=== PATIENT | male | born 1940 | race Caucasian/White ===

== ENCOUNTER → 2022-04-01 08:10 | Outpatient (BNVA) | payer MEDICARE, SELFPAY | PROVIDERS: PCP Internal Medicine; Visit Provider Nurse Practitioner Family | DX: F03.918 Unspecified dementia, unspecified severity, with other behavioral disturbance (principal); Z86.79 Personal history of other diseases of the circulatory system; Z87.898 Personal history of other specified conditions | CPT/HCPCS: 99212 ==

== ENCOUNTER → 2022-07-06 11:37 | Outpatient (BNVA) | payer MEDICARE, SELFPAY | PROVIDERS: PCP Internal Medicine; Visit Provider Nurse Practitioner Family | DX: F03.918 Unspecified dementia, unspecified severity, with other behavioral disturbance (principal); R26.9 Unspecified abnormalities of gait and mobility; Z86.79 Personal history of other diseases of the circulatory system; Z87.898 Personal history of other specified conditions | CPT/HCPCS: 99212 ==

== ENCOUNTER 2022-12-29 11:14 | Outpatient (AMB) | payer MEDICARE, SELFPAY ==
--- NOTE | 2022-12-29 11:16 | A.OFFVIS_ITS ---
Intake Intake Visit Reasons: 6m Follow up - daughter iphone [phone] Intake Note: Pt presents with his daughter as a telehealth. My father is spiraling downhill, alot has happened since July. Slots Manager Required: No Allergies No Known Allergies [No Known Allergies*] Allergy (Unverified 12/29/22 11:17) HPI HPI Comments History of Present Illness Details 82-yr-old male presents for f/u televideo visit. Pt is accompanied by his dtr and son. Dtr provides most of hx. Pt endorses the following interval medical history changes: Pt's dtr reports that pt had a [facility] admission in July d/t ? constipation. Pt had a significant decline- became overall more weak- requiring soft diet, max assist, and a w/c for all mobility. Pt has had additional [facility] admits since. He is currently in rehab at [facility] memory support unit. Dtr states pt seems more spacey. he is not initiating conversation as much and his speech is much less understandable. He is still confined to a w/c. He is not trying to walk or get up on his own. He is working w/ PT, OT, and DIRECTOR OF COLLECTIONS. Dtr is uncertain what pt is taking for medications. She is wondering if pt can be weaned off of namenda- as does not feel this is helping any longer. [facility] Family History (Updated 07/06/22 @ 11:51 by Yajaira Wright [employer] SALES [employer]OCIATE) Sister Parkinsons disease Social History (Updated 07/06/22 @ 11:52 by Yajaira Wright [facility]) Alcohol intake: current Alcohol intake frequency: holidays/special occasions only Patient Tobacco Use Status: Former Tobacco user Review of Systems Const All systems reviewed & are unremarkable except as noted in HPI and below Physical Exam Const General: cooperative and no acute distress HEENT Head: Yes normocephalic Resp Effort & Inspection: normal respiratory effort and able to speak in complete sentences Neuro Other: Pt is alert, in NAD, sitting upright in his w/c. Pt tending to stare off, but his attention can be easily gained. Pt able to speak some simple sentences, otherwise aphasic. Assessment & Plan Assessment & Plan (1) Dementia with behavioral disturbance: Comment: Cognitive difficulties have progressed since initial SAH in 2018. Code(s): F03.918 - Unspecified dementia, unspecified severity, with other behavioral disturbance (2) History of subarachnoid hemorrhage: Comment: s/p fall 09/08, w/ residual language deficits Code(s): Z86.79 - Personal history of other diseases of the circulatory system (3) History of seizure: Code(s): Z87.898 - Personal history of other specified conditions Plan Will request records from [facility], [facility], [facility] unit. Upon review, will consider weaning pt off of Namenda. Continue PT, OT, DIRECTOR OF COLLECTIONS, supportive care. f/u in 3 months or sooner prn. Telehealth Telehealth Location of provider rendering services: practice address Location of patient: other ([facility] ) Patient Identification confirmed using: Name, : Yes Telehealth method: video Patient verbally consented to treatment: Yes Patient verbally consented to billing insurance company: Yes Patient informed of any privacy concerns related to visit: Yes Minutes spent on Phone/Video with Pt.: 22 Coding Level of Care Code Tele Est Pt Level 4 (22868) Diagnoses Dementia with behavioral disturbance F03.918 History of subarachnoid hemorrhage Z86.79 History of seizure Z87.898
--- OUTSIDE RECORDS SUMMARY | 2022-12-29 11:16 | XMS_ITS | Continuity of Care Document ---
Author Name Unknown Organization [facility] ter Address [address] [place] [id number]- Care Team Providers Care Interventional Radiologist Name Role Phone Laurence Luis MD Primary Care Physician Encounter [facility] ACCT R [id number] Date(s): 07/24/22 - 07/24/[address] [address]- Encounter Diagnosis Superficial vein thrombosis(Final) - 07/24/22 Superficial vein thrombosis(Final) - 07/24/22 Discharge Disposition: A-D/C Home Attending Physician: Alcira Lagos DO Admitting Physician: Alcira Lagos DO Referring Physician: Not on Staff, Referring MD Allergies, Adverse Reactions, Alerts No Known Medication Allergies Medications atorvastatin 40 mg oral tablet 1 tablet = 40 mg, By Mouth, Daily, 0 Refills, Maintenance, 02/28/21 21:41:00 EDT, Tablet Start Date: 02/28/21 Status: Ordered levothyroxine 125 mcg (0.125 mg) oral tablet 1 tablet = 125 mcg, By Mouth, Daily, 6 days a week., 0 Refills, Maintenance, 02/28/21 21:41:00 EDT,Tablet Start Date: 02/28/21 Status: Ordered Lexapro 5 mg oral tablet 2 tablet = 10 mg, By Mouth, Daily, 0 Refills, Maintenance, 07/24/22 11:12:00 EST, Partial fill uponpatient request if the prescription is for a schedule II opioid drug. Start Date: 07/24/22 Status: Ordered memantine 28 mg oral capsule, extended release 1 capsule = 28 mg, By Mouth, Daily, 0 Refills, Maintenance, 02/28/21 21:41:00 EDT, ER Capsule Start Date: 02/28/21 Status: Ordered Tylenol 8 HR Arthritis Pain 650 mg oral tablet, extended release 2 tablet = 1,300 mg, By Mouth, Every 8 hours, PRN Pain , Mild, 0 Refills, Maintenance, 07/24/22 11:12:00 EST, Partial fill upon patient request if the prescription is for a schedule II opioid drug. Start Date: 07/24/22 Status: Ordered Results Radiology Reports * Exam Date Time Procedure Performing Provider Status 07/24/22 12:00 PM US Doppler Ext Lower Venous Right Sascha Bonilla; Auth (Verified) Notes: (US Doppler Ext Lower Venous Right) Reason For Exam: Pain in limb;Other: RESULT: US Doppler Ext Lower Venous Right US Doppler Ext Lower Venous Right Hx of Present Illness: From [facility] patient has no complaints of cp, general pain or SOB at this time. Patient unable to recall any symptoms in last week. Unclear why facility requested US of RLE. Results positive for RLE DVT.; Reason: Other:; Pain in limb; Clinical Question(s): Thrombus COMPARISON: None IMAGING TECHNIQUE: Ultrasound of the veins from the groin through the calf was performed using grayscale, color, and spectral Doppler ultrasound assessing for complete compressibility and normal flowcharacteristics. FINDINGS: Limited examination. Common femoral vein: Patent. No thrombosis. Femoral vein: Patent. No thrombosis. Popliteal vein: Patent. No thrombosis. Gastrocnemius veins: The visualized portions are patent without evidence of thrombosis. Peroneal veins: The visualized portions are patent without evidence of thrombosis. The distal segment of the right peroneal vein is not visualized. Posterior tibial veins: The visualized portions are patent without evidence of thrombosis. Contralateral common femoral vein: Patent. No thrombosis. OTHER FINDINGS: There is occlusive thrombus of the visualized smaller saphenous vein. There is diffuse associated soft tissue swelling. IMPRESSION: 1. Occlusive thrombus of the visualized right smaller saphenous vein. Findings were cortexted to Dr. Marcial at 12:15 PM on 07/24/2022. WSN: [id number] Ordering Physician: Rafa Marcial Dictated By: Delicia Rincon MD Dictated Date/Time: 07/24/22 12:16 p Reviewed By: Delicia Rincon MD Signed By: Delicia Rincon MD Signed Date/Time: 07/24/22 12:16 pm Transcribed By: NICHOLAS Transcribed Date/Time: 07/24/22 12:02 pm Vital Signs Most recent to oldest [Reference Range]: 1 2 3 Oxygen Saturation [94-100 %] 98 % (07/24/22 2:59 PM) 99 % (07/24/22 12:17 PM) 96 % (07/24/22 10:17 AM) Pulse Rate [55-90 bpm] 65 bpm (07/24/22 2:59 PM) 68 bpm (07/24/22 12:17 PM) 70 bpm (07/24/22 10:17 AM) Blood Pressure [90-138/55-84 mm Hg] 136/76mm Hg (07/24/22 2:59 PM) 119/71mm Hg (07/24/22 12:17 PM) 104/61mm Hg (07/24/22 10:17 AM) Respiratory Rate [16-30 br/min] 16 br/min (07/24/22 2:59 PM) 18 br/min (07/24/22 12:17 PM) 21 br/min (07/24/22 10:17 AM) Temperature [96.8-100.4 DegF] 97.8 DegF (07/24/22 2:59 PM) 97.5 DegF (07/24/22 12:17 PM) 97 DegF (07/24/22 10:17 AM) Liters per Minute 0 L/min (07/24/22 10:17 AM) Mode of Delivery (Oxygen) Room air (07/24/22 2:59 PM) Room air (07/24/22 12:17 PM) Room air (07/24/22 10:17 AM) Blood pressure sites Arm, right (07/24/22 2:59 PM) Arm, right (07/24/22 12:17 PM) Arm, left (07/24/22 10:17 AM) Temperature Route Oral (07/24/22 2:59 PM) Oral (07/24/22 12:17 PM) Oral (07/24/22 10:17 AM) EKG study * Event Display: ECG 12-Lead Authored Date: Please click on pdf link to open report * Event Display: ECG 12-Lead Authored Date: Ventricular Rate: 70 BPM Atrial Rate: 70 BPM P-R Interval: 198 ms QRS Duration: 96 ms Q-T Interval: 366 ms QTC Calculation(Bazett): 395 ms P [place]: 79 degrees R [place]: 61 degrees T [place]: 59 degrees Normal sinus rhythm Septal infarct , age undetermined Abnormal ECG When compared with ECG of 28-FEB-2021 18:09, Septal infarct is now Present Confirmed by DEBORA HEAD ([id number]) on 07/24/2022 10:33:14 AM [place]: DEBORA HEAD Note * BHSPowerscribe , CIS S: TRANSCRIBE Delicia Rincon MD: VERIFY Event Display: Result: Authored Date: US Doppler Ext Lower Venous Right Hx of Present Illness: From [facility] patient has no complaints of cp, general pain or SOB at this time. Patient unable to recall any symptoms in last week. Unclear why facility requested US of RLE. Results positive for RLE DVT.; Reason: Other:; Pain in limb; Clinical Question(s): Thrombus COMPARISON: None IMAGING TECHNIQUE: Ultrasound of the veins from the groin through the calf was performed using grayscale, color, and spectral Doppler ultrasound assessing for complete compressibility and normal flowcharacteristics. FINDINGS: Limited examination. Common femoral vein: Patent. No thrombosis. Femoral vein: Patent. No thrombosis. Popliteal vein: Patent. No thrombosis. Gastrocnemius veins: The visualized portions are patent without evidence of thrombosis. Peroneal veins: The visualized portions are patent without evidence of thrombosis. The distal segment of the right peroneal vein is not visualized. Posterior tibial veins: The visualized portions are patent without evidence of thrombosis. Contralateral common femoral vein: Patent. No thrombosis. OTHER FINDINGS: There is occlusive thrombus of the visualized smaller saphenous vein. There is diffuse associated soft tissue swelling. IMPRESSION: 1. Occlusive thrombus of the visualized right smaller saphenous vein. Findings were cortexted to Dr. Marcial at 12:15 PM on 07/24/2022. WSN: [id number] Ordering Physician: Rafa Marcial Dictated By: Delicia Rincon MD Dictated Date/Time: 07/24/22 12:16 p Reviewed By: Delicia Rincon MD Signed By: Delicia Rincon MD Signed Date/Time: 07/24/22 12:16 pm Transcribed By: NICHOLAS Transcribed Date/Time: 07/24/22 12:02 pm Patient Care team information Care Team Personnel Name: Laurence Luis MD Position: [facility] Outreach Member Role: PCP Address: Address: [address] [place] [address]- Name: Alcira Lagos DO Position: [facility] ED Medicine MD Member Role: Admitting Physician Address: Address: [address] [place] [address]- Name: Letitia Mcneill Position: [facility] ED TA [facility] Member Role: Cow Tester Name: Shelbi Mac RN Position: [facility] ED RN W/OE and Tasks Member Role: Patient Care Provider Name: Rafa Marcial DO Position: [facility] Resident Member Role: ED Resident Address: Address: [address] [place] [address]- Care Team Related Persons Name: CAROLANN WILD Address: [address] [address]
--- OUTSIDE RECORDS SUMMARY | 2022-12-29 11:16 | XMS_ITS | Continuity of Care Document ---
Author Name Unknown Organization [facility] ter Address [address] [place] [address]- Care Team Providers Care Forest Officer Name Role Phone Edis CALDWELL, September A Primary Care Physicia n Encounter [facility] Date(s): 11/22/22 - 11/22/[address] [address]- Encounter Diagnosis Fall(Final) - 11/22/22 UTI (urinary tract infection)(Final) - 11/22/22 Discharge Disposition: A-D/C Home Attending Physician: Alondra Garcia MD Admitting Physician: Alondra Garcia MD Referring Physician: Not on Staff, Referring MD Allergies, Adverse Reactions, Alerts No Known Medication Allergies Medications atorvastatin 40 mg oral tablet 1 tablet = 40 mg, By Mouth, Daily, 0 Refills, Maintenance, 02/28/21 21:41:00 EDT, Tablet Start Date: 02/28/21 Status: Ordered cephalexin monohydrate 500 mg oral capsule 1 capsule = 500 mg, By Mouth, 4 times a day, for 10 days, # 40 capsule, 0 Refills, Acute 12/02/22 12:54:00 EDT, 11/22/22 12:54:00 EDT, Capsule, [facility], Partial fill upon patient request if the prescription is for a schedule II opioid... Start Date: 11/22/22 Stop Date: 12/02/22 Status: Ordered levothyroxine 125 mcg (0.125 mg) [...] Exam Date Time Procedure Performing Provider Status 11/22/22 3:[address] Cervical Spine W/O Contrast Nadja Hilton; Auth (Verified) Notes: (CT Cervical Spine W/O Contrast) Reason For Exam: Neck trauma, dangerous injury mechanism;Other: RESULT: CT Cervical Spine W/O Contrast CT Head/Brain W/O Contrast, CT Cervical Spine W/O Contrast INDICATION: Unwitnessed fall. TECHNIQUE: Noncontrast head CT using axial technique was reconstructed in axial and coronal planes.Noncontrast spiral CT through the cervical spine was formatted in 3 planes. Automatic tube modulation was used for the cervical spine and iterative dose reconstruction was used for both the head and cervical spine to optimize scan parameters and image quality. CTDIvol Body: 11.30 mGy, DLP Body: 280 mGy*cm. CTDIvol Head: 41.40 mGy, DLP Head: 672 mGy*cm. COMPARISON: 02/28/2021. FINDINGS: Supervisor Spinning View Findings, Lines and Tubes: None. BRAIN AND EXTRA-AXIAL SPACES: No parenchymal hemorrhage, midline shift, or mass effect. Major-white matter differentiation is wellpreserved. No acute infarct. Negative insular ribbon and hyperdense vessel signs. Moderate prominence of the ventricles and sulci consistent with parenchymal volume loss. Severe low-density white matter changes. No subarachnoid hemorrhage. No subdural or epidural collection. CALVARIUM, SKULL BASE, AND SOFT TISSUES: No fractures or suspicious bony lesions. The paranasal sinuses and mastoid air cells are clear. Status-post bilateral lens extraction. The extracranial soft tissues are unremarkable. CERVICAL SPINE: No fracture. No acute osseous abnormalities. Normal alignment. No locked or perched facet. Moderate multilevel degenerative disc space narrowingand end plate irregularity. OTHER BONES: No acute abnormality. CERVICAL SOFT TISSUES AND LUNG APICES: Mild thickening of the intermittent esophageal wall. Visualized lung apices are clear. IMPRESSION: No acute abnormality of the head or cervical spine. Mild thickening of the intermittent esophageal wall. Clinical correlation is recommended. I have personally reviewed the images and I agree with this report. WSN: [id number] Ordering Physician: Josh Blanca Dictated By: Dmitry Sherman MD Dictated Date/Time: 11/22/22 5:45 am Reviewed By: Saranya Lewis MD Signed By: Saranya Lewis MD Signed Date/Time: 11/22/22 5:50 am Transcribed By: NICHOLAS Transcribed Date/Time: 11/22/22 3:38 am * Exam Date Time Procedure Performing Provider Status 11/22/22 3:[address] Head/Brain W/O Contrast Valdemar Hilton; Santos (Verified) Notes: (CT Head/Brain W/O Contrast) Reason For Exam: Headache(s) RESULT: CT Head/Brain W/O Contrast CT Head/Brain W/O Contrast, CT Cervical Spine W/O Contrast INDICATION: Unwitnessed fall. TECHNIQUE: Noncontrast head CT using axial technique was reconstructed in axial and coronal planes.Noncontrast spiral CT through the cervical spine was formatted in 3 planes. Automatic tube modulation was used for the cervical spine and iterative dose reconstruction was used for both the head and cervical spine to optimize scan parameters and image quality. CTDIvol Body: 11.30 mGy, DLP Body: 280 mGy*cm. CTDIvol Head: 41.40 mGy, DLP Head: 672 mGy*cm. COMPARISON: 02/28/2021. FINDINGS: Supervisor Spinning View Findings, Lines and Tubes: None. BRAIN AND EXTRA-AXIAL SPACES: No parenchymal hemorrhage, midline shift, or mass effect. Major-white matter differentiation is wellpreserved. No acute infarct. Negative insular ribbon and hyperdense vessel signs. Moderate prominence of the ventricles and sulci consistent with parenchymal volume loss. Severe low-density white matter changes. No subarachnoid hemorrhage. No subdural or epidural collection. CALVARIUM, SKULL BASE, AND SOFT TISSUES: No fractures or suspicious bony lesions. The paranasal sinuses and mastoid air cells are clear. Status-post bilateral lens extraction. The extracranial soft tissues are unremarkable. CERVICAL SPINE: No fracture. No acute osseous abnormalities. Normal alignment. No locked or perched facet. Moderate multilevel degenerative disc space narrowingand end plate irregularity. OTHER BONES: No acute abnormality. CERVICAL SOFT TISSUES AND LUNG APICES: Mild thickening of the intermittent esophageal wall. Visualized lung apices are clear. IMPRESSION: No acute abnormality of the head or cervical spine. Mild thickening of the intermittent esophageal wall. Clinical correlation is recommended. I have personally reviewed the images and I agree with this report. WSN: [id number] Ordering Physician: Josh Blanca Dictated By: Dmitry Sherman MD Dictated Date/Time: 11/22/22 5:45 am Reviewed By: Saranya Lewis MD Signed By: Saranya Lewis MD Signed Date/Time: 11/22/22 5:50 am Transcribed By: NICHOLAS Transcribed Date/Time: 11/22/22 3:38 am Vital Signs Most recent to oldest [Reference Range]: 1 2 Oxygen Saturation [94-100 %] 91 % *L* (11/22/22 4:47 AM) 96 % (11/22/22 2:30 AM) Pulse Rate [55-90 bpm] 81 bpm (11/22/22 4:47 AM) 67 bpm (11/22/22 2:30 AM) Blood Pressure [90-138/55-84 mm Hg] 120/ 62mm Hg (11/22/22 4:47 AM) 116/74mm Hg (11/22/22 2:30 AM) Respiratory Rate [16-30 br/min] 20 br/mi n (11/22/22 4:47 AM) 20 br/min (11/22/22 2:30 AM) Temperature [96.8-100.4 DegF] 98.1 DegF (11/22/22 4:47 AM) 97.7 DegF (11/22/22 2:30 AM) Mode of Delivery (Oxygen) Room air (11/22/22 4:47 AM) Room air (11/22/22 2:30 AM) Blood pressure sites Arm, right (11/22/22 4:47 AM) Arm, right (11/22/22 2:30 AM) Temperature Route Oral (11/22/22 4:47 AM) Oral (11/22/22 2:30 AM) EKG study * Event Display: ECG 12-Lead Authored Date: [id number] Please click on pdf link to open report * Event Display: ECG 12-Lead Authored Date: Ventricular Rate: 79 BPM Atrial Rate: 79 BPM P-R Interval: 200 ms QRS Duration: 86 ms Q-T Interval: 362 ms QTC Calculation(Bazett): 415 ms P [place]: 82 degrees R [place]: 72 degrees T [place]: 67 degrees Normal sinus rhythm Normal ECG When compared with ECG of 24-JUL-2022 10:01, Minimal criteria for Septal infarct are no longer Present Confirmed by ROBERTO SANABRIA MD ([id number]) on 11/22/2022 11:08:23 AM [place]: ROBERTO SANABRIA MD Note * Rojelio Paniagua DO: PERFORM Event Display: Patient Education Leaflets Authored Date: [id number] Urinary Tract Infections in Men ?? [id number] Urinary Tract Infections in Men Urinary tract infections (UTIs) are most often caused by bacteria that invade the urinary tract. The bacteria may come from outside the body. Or they may travel from the skin outside the rectum into the urethra. The urethra is the tube that carries urine from the bladder out of the body. Pain in oraround the urinary tract is a common symptom for most UTIs. Woman more commonly get UTIs than men. That???s because their urethra is shorter. Older men get UTIs more commonly than younger because older men may have an enlarged prostate. A UTI in a male is usually a sign that something is wrong with their urinary system. Using a catheter also increases the risk for UTI. Most UTIs are treated with antibiotics. These kill the bacteria. How long you need to take them depends on the type of infection. Take antibiotics exactly as directed until all of the medicine is gone. If you don't, the infection may not go away and may become harder to treat in the future. Gender words are used here to talk about anatomy and health risk. Please use this information in a way that works best for you and your provider as you talk about your care. Home care The lifestyle changes below will help get rid of your current infection. They may also help preventfuture UTIs: ??? Drink plenty of fluids, such as water, juice, or other caffeine-free drinks. This helps flush bacteria out of your system. ??? Empty your bladder when you feel the urge to urinate and before going to sleep. Urine that stays in your bladder makes an infection more likely. ??? If youare uncircumcised, pull the foreskin back and wash under the foreskin each time you take a bath or shower. ?? Follow-up care Follow up with your healthcare provider, or as advised if your symptoms continue after finishing all of the antibiotic medicine. Your healthcare provider may do tests to make sure the infection has cleared. If needed, more treatment can be started. ?? When to get medical advice Call your healthcare provider right away if any of the following occur: ??? Frequent urination ??? Pain or burning when passing urine ??? Weak urine stream ??? Feeling that you can't empty your bladder ??? Fever of 100.4??F (38??C) or higher , or as directed by your healthcare provider ??? Urine that looks dark, cloudy, or reddish in color. This may mean that blood is in the urine. ??? Urine smells bad ??? Feeling pain even when not urinating ??? Tiredness ??? Pain in the belly (abdomen) area below the bellybutton, or in the back or side, below the ribs ??? Nausea or vomiting ??? Have a strong urge to urinate, but only a small amount of urine is passed (dribbling) ??? Feeling confused or very tired (in older adults) ?? Last Reviewed Date: 2022 ?? [id number] [employer]. All rights reserved. This information is not intended as a substitute for professional medical care. Always follow your healthcare professional's instructions. ?? Patient Care team information Care Team Personnel Name: Makenzie Randhawa MD Position: S Physician - Primary Care Member Role: PCP Address: Address: [address] [facility] [place] [address]- [place] Name: Rojelio Paniagua DO Position: [facility] Resident Member Role: ED Resident Address: Address: [address] [place] [address]- Name: Marley Lazaro RN Position: [facility] ED RN W/OE and Tasks Member Role: Patient Care Provider Name: David Gutiérrez MD Position: [facility] ED Medicine MD Address: Address: [address] [place] [address]- [place] Name: Alondra Garcia MD Position: [facility] ED Medicine MD Member Role: Admitting Physician Address: Address: [address] [place] [address]- Care Team Related Persons Name: CAROLANN WILD Address: [address] [place] [address]
--- OUTSIDE RECORDS SUMMARY | 2022-12-29 11:16 | XMS_ITS | Continuity of Care Document ---
Author Name Unknown Organization [facility] ter Address [address] [place] [id number] Care Team Providers Care Virtual Customer Assistant Name Role Phone Edis CALDWELL, September A Primary Care Physicia n Encounter [facility] [place] [facility] Date(s): 12/11/22 - 12/14/[address] [address]- Encounter Diagnosis Fall(Final) - 12/11/22 Discharge Disposition: A-Transfer SNF Attending Physician: Davis Zuleta MD Admitting Physician: Yousuf Willoughby DO Referring Physician: Not on Staff, Referring MD Allergies, Adverse Reactions, Alerts No Known Medication Allergies Medications atorvastatin 40 mg oral tablet 1 tablet = 40 mg, By Mouth, Daily, 0 Refills, Maintenance, 02/28/21 21:41:00 EDT, Tablet Start Date: 02/28/21 Status: Ordered Docusate/Senna Tablet 1 tablet, By Mouth, 2 times a day, PRN Constipation, 0 Refills, Maintenance, 12/14/22 13:01:00 EDT,Tablet, Partial fill upon patient request if the prescription is for a schedule II opioid drug. Start Date: 12/14/22 Status: Ordered levothyroxine 125 mcg (0.125 mg) oral tablet 1 tablet = 125 mcg, By Mouth, Daily, 6 days a week., 0 Refills, Maintenance, 02/28/21 21:41:00 EDT,Tablet Start Date: 02/28/21 Status: Ordered Lexapro 10 mg oral tablet = 15 mg, By Mouth, Daily, 0 Refills, Maintenance, 12/11/22 10:42:00 EDT, Tablet, Partial fill upon patient request if the prescription is for a schedule II opioid drug. Start Date: 12/11/22 Status: Ordered memantine 28 mg oral capsule, extended release 1 capsule = 28 mg, By Mouth, Daily, 0 Refills, Maintenance, 02/28/21 21:41:00 EDT, ER Capsule Start Date: 02/28/21 Status: Ordered MiraLax Powder 1 pack/packet = 17 Gm, By Mouth, Daily, PRN Constipation, 0 Refills, Maintenance, 12/14/22 13:01:00EDT, Powder, Partial fill upon patient request if the prescription is for a schedule II opioid drug. Start Date: 12/14/22 Status: Ordered Protonix 20 mg oral delayed release tablet = 20 mg, By Mouth, Daily, 0 Refills, Maintenance, 12/14/22 13:01:00 EDT, EC Tablet Start Date: 12/14/22 Status: Ordered simethicone 80 mg oral tablet, chewable 80 mg, Chew, 3 times a day, PRN, Refills 0, Maintenance, Gas, 12/14/22 13:01:00 EDT, Partial fill upon patient request if the prescription is for a schedule II opioid drug. Start Date: 12/14/22 Status: Ordered traZODone 50 mg oral tablet 50 mg, By Mouth, Daily at bedtime, Refills 0, Maintenance, 12/14/22 13:07:00 EDT, Partial fill uponpatient request if the prescription is for a schedule II opioid drug. Start Date: 12/14/22 Status: Ordered Tylenol 8 HR Arthritis Pain 650 mg oral tablet, extended release 2 tablet = 1,300 mg, By Mouth, Every 8 hours, PRN Pain , Mild, 0 Refills, Maintenance, 07/24/22 11:12:00 EST, Partial fill upon patient request if the prescription is for a schedule II opioid drug. Start Date: 07/24/22 Status: Ordered Problem List Condition Confirmation Course Effective Dates Status [facility] Depression Confirmed Active Hyperlipidemia Confirmed Active Hypothyroidism Confirmed Active Vascular dementia Confirmed Active Results Radiology Reports * Exam Date Time Procedure Performing Provider Status 12/09/22 5:[address] Cervical Spine W/O Contrast Tati Walton; Auth (Verified) Notes: (CT Cervical Spine W/O Contrast) Reason For Exam: Trauma RESULT: CT Cervical Spine W/O Contrast CT Cervical Spine W/O Contrast Hx of Present Illness: unwitnessed fall, found next to bed and holding head per SNF staff; Reason: Trauma; Clinical Question(s): Fracture Dislocation; Order Comment: TECHNIQUE: Spiral CT of the cervical spine without contrast, formatted in 3 planes. Weight-based protocol using automatic tube modulation was used to optimize exposure parameters. RADIATION DOSE PARAMETERS: CTDIvol Body: 24.20 mGy, DLP Body: 966 mGy*cm. COMPARISON: None. FINDINGS: Spine: Image quality is significantly degraded by patient motion artifact at the skull base and upper cervical spine. No obvious fracture is identified but subtle pathology may be obscured as above. Nonspecific straightening of lordosis which may be positional. No gross chad or retrolisthesis. Moderate to severe degenerative disc space narrowing at all levels. No locked or perched facets. Soft tissues and lung apices: Incidental patulous esophagus. Clear lung apices. IMPRESSION: Motion degraded examination. No cervical fracture or malalignment is identified. WSN: [id number] Ordering Physician: Esther Jenkins Dictated By: Rashad Lucas MD Dictated Date/Time: 12/09/22 6:15 pm Reviewed By: Rashad Lucas MD Signed By: aRshad Lucas MD Signed Date/Time: 12/09/22 6:15 pm Transcribed By: NICHOLAS Transcribed Date/Time: 12/09/22 6:10 pm * Exam Date Time Procedure Performing Provider Status 12/09/22 3:51 AM Chest 2 Views Frontal and Lat Zeenat Torres; Santos (Verified) Notes: (Chest 2 Views Frontal and Lat) Reason For Exam: Other: RESULT: Chest 2 Views Frontal and Lat Chest 2 Views Frontal and Lat Hx of Present Illness: unwitnessed fall, found next to bed and holding head per SNF staff; Reason: Other:; Clinical Question(s): Other: COMPARISON: 12/07/2022 FINDINGS: LINES AND TUBES: None. LUNGS AND PLEURA: Clear lungs. Normal pulmonary vascularity. No pleural effusion. No pneumothorax. HEART, MEDIASTINUM AND SAIGE: Heart is normal in size. Aorta is tortuous and unfolded. BONES AND SOFT TISSUES: No acute abnormality. IMPRESSION: No acute abnormality. WSN: [id number] Ordering Physician: Mickey Whiting Dictated By: Kenneth Vogel MD Dictated Date/Time: 12/09/22 8:07 am Reviewed By: Kenneth Vogel MD Signed By: Kenneth Vogel MD Signed Date/Time: 12/09/22 8:07 am Transcribed By: NICHOLAS Transcribed Date/Time: 12/09/22 8:06 am * Exam Date Time Procedure Performing Provider Status 12/09/22 4:[address] Abd/Pelvis W/ IV Contrast Only VijayzoniaFloyd esqueda; Santos (Verified) Notes: (CT Abd/Pelvis W/ IV Contrast Only) Reason For Exam: RLQ ttp;Other: RESULT: CT Abd/Pelvis W/ IV Contrast Only CT Abd/Pelvis W/ IV Contrast Only Hx of Present Illness: unwitnessed fall, found next to bed and holding head per SNF staff; Reason: Other:; RLQ ttp; Clinical Question(s): Other:; Order Comment: Patient unable to tolerate PO contrast. TECHNIQUE: Spiral CT through the abdomen and pelvis with IV contrast formatted in 3 planes. 75 cc of Omnipaque 300 was administered intravenously. This study was performed without oral contrast. Weight-based protocol using automatic tube modulation was used to optimize exposure parameters. COMPARISON: None. FINDINGS: Hadoop Software Engineer View Findings, Lines and Tubes: None. Visualized Chest: Lung bases are clear. No pleural effusion. The heart is normal in size. No pericardial effusion. Diaphragm: Normal. Liver: Normal. Gallbladder: Cholelithiasis without evidence of acute cholecystitis Bile ducts: No biliary ductal dilation. Spleen: Normal. Pancreas: Normal. Adrenal glands: Normal. Kidneys and ureters: No hydronephrosis, stones, or suspicious masses. Simple appearing renal cysts are noted, requiring no dedicated follow up. Bladder: Trabeculated appearance of the bladder with multiple small diverticula. Reproductive organs: Moderate prostatomegaly Stomach, small bowel, and large bowel: No evidence of obstruction or inflammation. Colonic diverticulosis without evidence of acute diverticulitis. Type I hiatal hernia. Appendix: Normal. Peritoneum and retroperitoneum: No ascites or pneumoperitoneum. No omental or mesenteric lesions. Lymph nodes: No enlarged lymph nodes. Blood vessels: Mild vascular calcifications but no aneurysm. No evidence of venous thrombosis. Abdominal and pelvic wall: Bilateral inguinal hernias. Mesenteric vessels present in the right inguinal hernia. Bones: No acute abnormality. IMPRESSION: No evidence of traumatic injury in the abdomen or pelvis. I have personally reviewed the images and I agree with this report. WSN: [id number] Ordering Physician: Mickey Whiting Dictated By: Madison Benedict DO Dictated Date/Time: 12/09/22 8:03 am Reviewed By: Veit Shore MD Signed By: Viet Shore MD Signed Date/Time: 12/09/22 8:08 am Transcribed By: NICHOLAS Transcribed Date/Time: 12/09/22 4:45 am * Exam Date Time Procedure Performing Provider Status 12/09/22 4:[address] Head/Brain W/O Contrast Floyd Finney; Santos (Verified) Notes: (CT Head/Brain W/O Contrast) Reason For Exam: Trauma RESULT: CT Head/Brain W/O Contrast CT Head/Brain W/O Contrast INDICATION: unwitnessed fall, found next to bed and holding head per SNF staff; Reason: Trauma; Clinical Question(s): Hematoma TECHNIQUE: Noncontrast head CT using axial technique and reconstructed in axial and coronal planes.Iterative reconstruction techniques are used to optimize dose and image quality. COMPARISON: Multiple priors most recently 12/07/2022 FINDINGS: Hadoop Software Engineer view findings, lines and tubes: None. BRAIN AND EXTRA-AXIAL SPACES: Unchanged encephalomalacia involving the left frontal lobe No parenchymal hemorrhage, midline shift, or mass effect. Major-white matter differentiation is wellpreserved. No acute infarct. Negative insular ribbon sign. Atherosclerotic vascular calcification of the carotid arteries but negative hyperdense vessel sign. Moderate prominence of the ventricles and sulci consistent with parenchymal volume loss. Moderate low-density white matter changes. No subarachnoid hemorrhage. No subdural or epidural collection. CALVARIUM, SKULL BASE, AND SOFT TISSUES: No fractures or suspicious bony lesions. The paranasal sinuses and mastoid air cells are clear. Status-post bilateral lens extraction. The extracranial soft tissues are unremarkable. IMPRESSION: No acute intracranial pathology. I have personally reviewed the images and I agree with this report. WSN: [id number] Ordering Physician: Mickey Whiting Dictated By: Madison Benedict DO Dictated Date/Time: 12/09/22 7:20 am Reviewed By: Jerome Ivey MD Signed By: Jerome Ivey MD Signed Date/Time: 12/09/22 7:25 am Transcribed By: NICHOLAS Transcribed Date/Time: 12/09/22 4:37 am Vital Signs Most recent to oldest [Reference Range]: 1 2 3 Weight 66.1 kg (12/14/22 6:00 AM) 86 kg (12/10/22 6:41 AM) 82 kg (12/10/22 2:46 AM) Oxygen Saturation [94-100 %] 97 % (12/14/22 12:57 PM) 100 % (12/14/22 6:00 AM) 97 % (12/13/22 11:25 PM) Pulse Rate [55-90 bpm] 60 bpm (12/14/22 12:57 PM) 90 bpm (12/14/22 6:00 AM) 61 bpm (12/13/22 11:25 PM) Blood Pressure [90-138/55-84 mm Hg] 112/69mm Hg (12/14/22 12:57 PM) 94/56mm Hg (12/14/22 6:00 AM) 98/51mm Hg (12/13/22 11:25 PM) Respiratory Rate [16-30 br/min] 18 br/min (12/14/22 12:57 PM) 18 br/min (12/14/22 6:00 AM) 17 br/min (12/13/22 11:25 PM) Temperature [96.8-100.4 DegF] 97.2 DegF (12/14/22 12:57 PM) 97.3 DegF (12/14/22 6:00 AM) 97.8 DegF (12/13/22 11:25 PM) Mode of Delivery (Oxygen) Room air (12/14/22 12:57 PM) Room air (12/14/22 6:00 AM) Room air (12/13/22 11:25 PM) Blood pressure sites Arm, right (12/14/22 12:57 PM) Arm, right (12/14/22 9:00 AM) Arm, right (12/14/22 6:00 AM) Temperature Route Axillary (12/14/22 12:57 PM) Oral (12/14/22 6:00 AM) Oral (12/13/22 11:25 PM) Dry Weight 86 kg (12/10/22 6:41 AM) Weight Obtained Via Bed scale (12/14/22 6:00 AM) Social History Social History Type Response Smoking Status Never (less than 100 in lifetime) entered on: 12/10/22 Sex Admission evaluation note * Jake Holden DO: MODIFY, MODIFY, PERFORM, MODIFY, MODIFY, MODIFY, MODIFY, MODIFY, MODIFY Event Display: Admission Note Authored Date: [id number] Patient: ??YULY HUSSEIN ? Age:??82 Years?Sex:??Male?:??1940?? Chief Complaint/Reason for Consultation unwitnessed fall at assisted living [facility], [facility] History of Present Illness 82-year-old male with a past medical history of vascular dementia, hypothyroidism, subarachnoid hemorrhage, seizure presenting from an assisted living facility after an unwitnessed fall. ?? HPI was obtained from chart review.?? Per report, he was found at his assisted living facility on the ground near his bed holding his head.?? EMS arrived and evaluated the patient, he was not complaining of any pain.?? History is limited as the patient has significant dementia.?? He is denying any pain or any other complaints at this time.?? He denies any headaches, dizziness, vision changes, chest pain, shortness of breath, abdominal pain, dysuria, extremity pain or back pain. ?? Per ED providers note, they spoke to [facility] assisted living facility.?? Staff there states that the patient is wheelchair-bound and resides in a memory care assisted living facility, for which he has resided in for the last couple of months.?? He has had frequent falls; noted to have fallen 3 times in the past 48 hours.?? There was concern about the patient's disposition back to his assistedliving facility. ?? On initial admission, vital signs are stable with afebrile, heart rate 62 bpm, normotensive blood pressure 112/69, saturating 96% on room air. CT head and C-spine obtained without any evidence of fracture or bleed.?? EKG demonstrated sinus rhythm, normal intervals and no axis deviation, no ST changes or T wave inversions.?? Chest x-ray did not show any evidence of focal consolidations, pulmonary edema, pleural effusions or pneumothorax.?? On labs, no evidence of leukocytosis, hemoglobin shows normocytic anemia of 11.2 with MCV of 93.4.?? All other electrolytes within normal limits.?? High-sensitivity troponin negative, plateaued at 17.?? Urinalysis is unremarkable.?? Due to concerns of frequent falls, the patient will be admitted here for further evaluation by case management and disposition. Review of Systems Limited, but patient denies chest pain, abdominal pain, calf pain, shortness of breath or difficulty breathing at the time of my examination Objective Vital Signs?? Temperature: 97.4 DegF (12/09/22 07:47:00) Temperature Route: Oral (12/09/22 07:47:00) Pulse Rate: 71 bpm (12/09/22 22:15:00) Respiratory Rate: 20 br/min (12/09/22 22:15:00) Systolic Blood Pressure: 115 mm Hg (12/09/22 22:15:00) Diastolic Blood Pressure: 62 mm Hg (12/09/22 22:15:00) Blood pressure sites: Arm, right (12/09/22 22:15:00) Mean Arterial Pressure: 81 mm Hg (12/09/22 09:54:00) Pulse Pressure: 29 mm Hg (12/09/22 09:54:00) Oxygen Saturation: 96 % (12/09/22 22:15:00) Mode of Delivery (Oxygen): Room air (12/09/22 22:15:00) Early Warning Score: 2 (12/09/22 22:16:10) ? Physical Exam General: elderly male appears states age resting comfortable in bed HEENT: EOMI. Neck is supple. Cardio: +S1, +S2 heard. Regular rate and rhythm. Radial and pedal pulses 2/4 palpated bilaterally. Respiratory: CTA bilaterally w/ no audible crackles, wheezes, or rales, saturating well on room air GI: Abdomen is mildly tender to palpation and distended on examination MSK: seen moving UE and LE independently Extremities: No peripheral edema noted. Skin is warm and dry, no bruising noted on extremities Neuro: no slurring of speech no facial droop noted, able to follow simple commands Psych: Alert and oriented x0 to person, place and time. Able to reiterate his daughter Debi Assessment/Plan 82-year-old male with a past medical history of vascular dementia, hypothyroidism, subarachnoid hemorrhage, seizure presenting from an assisted living facility after an unwitnessed fall of unknown etiology, pending CM consult and PT eval for safe disposition given frequent falls. ?? Unwitnessed Fall H/o vascular Dementia Multiple falls in the past, including 3 falls in the past 48 hours per living facility recent admission 11/22 for fall, found to have UTI and discharged on abx UA unremarkable this admission [facility] nonacute troponins flat, 17, 18 Fall may be related to progressive deconditioning related to vascular dementia, will need PT eval to determine safe disposition ?? Plan: - overnight tele monitoring - obtain??EKG - obtain orthostatic BP - PT eval placed - neurochecks every 4 hours - case management consulted for further disposition planning ?? Chronic stable medical conditions: Hypothyroidism: Continue levothyroxine 125mcg Hyperlipidemia: Continue atorvastatin Depression: Continue lexapro 10mg daily Vascular dementia: Memantine 28 mg ER??non-formulary will continue memantine 10 mg BID while in patient ?? Quality measures VTE prophylaxis: Subcu Lovenox Code status: DNR Diet: Cardiac diet Family update: Yesy, daughter, ??updated ?? Patient seen??and discussed with attending physician Dr. Palmer ?? Jake Holden??DO Internal Medicine PGY2 Histories Allergies Allergies ?(Active and Proposed Allergies Only) No Known Medication Allergies? (Severity: Unknown severity, Onset: Unknown) ? Past Medical History/Problem List Active Problems??(4) Depression Hyperlipidemia Hypothyroidism Vascular dementia ? Past Surgical History No surgery history documented. ? Social History Alcohol Details:??Use: Never. Substance Abuse Details:??Use: Never. Tobacco Details:??Use: Never (less than 100 in lifetime). Electronic Cigarette/Vaping Details:??Electronic Cigarette Use: Never. ? Family History Unable to obtain given sever dementia ? Medications Home Medications Acetaminophen (Tylenol 8 HR Arthritis Pain 650 mg oral tablet, extended release)?2?tab(s)?1,300?Milligram?By Mouth?Every 8 hours?as needed?Pain , Mild Atorvastatin (atorvastatin 40 mg oral tablet)?1?tab(s)?40?Milligram?By Mouth?Daily Escitalopram (Lexapro 5 mg oral tablet)?2?tab(s)?10?Milligram?By Mouth?Daily Levothyroxine (levothyroxine 125 mcg (0.125 mg) oral tablet)?1?tab(s)?125?Microgram?By Mouth?Daily?6 days a week. Memantine (memantine 28 mg oral capsule, extended release)?1?capsule?28?Milligram?ByMouth?Daily ? Results Recent Labs BLOOD COUNT & DIFF WBC 4.0 k/mm3 ()?? 12/09/2022 03:20 RBC 3.80 m/mm3 (Low)?? 12/09/2022 03:20 Hgb 11.2 Gm/dL (Low)?? 12/09/2022 03:20 Hct 35.5 % (Low)?? 12/09/2022 03:20 MCV 93.4 femtoliters ()?? 12/09/2022 03:20 MCH 29.5 pg ()?? 12/09/2022 03:20 MCHC 31.5 g/dL (Low)?? 12/09/2022 03:20 Platelet Count 180 k/mm3 ()?? 12/09/2022 03:20 RDW-SD 58.8 femtoliters (High)?? 12/09/2022 03:20 MPV 8.7 femtoliters (Low)?? 12/09/2022 03:20 Nucleated RBC (Automated) 0.0 #/100 WBC'S ()?? 12/09/2022 03:20 Abs. NRBC 0.0 k/mm3 ()?? 12/09/2022 03:20 Abs. Neut 2.0 k/mm3 ()?? 12/09/2022 03:20 Abs. Lymph 1.5 k/mm3 ()?? 12/09/2022 03:20 Abs. [place] 0.4 k/mm3 ()?? 12/09/2022 03:20 Abs. Eo 0.1 k/mm3 ()?? 12/09/2022 03:20 Abs. Baso 0.0 k/mm3 ()?? 12/09/2022 03:20 Neut % 49.8 % ()?? 12/09/2022 03:20 Lymph % 37.9 % ()?? 12/09/2022 03:20 [place] % 8.9 % ()?? 12/09/2022 03:20 Eos % 1.5 % ()?? 12/09/2022 03:20 Baso % 0.7 % ()?? 12/09/2022 03:20 Imm Gran 1.2 % ()?? 12/09/2022 03:20 Abs. Imm Gran 0.1 k/mm3 ()?? 12/09/2022 03:20 ?? CARDIAC High Sensitivity Troponin (HSTnT) 17 ng/L ()?? 12/09/2022 06:00 ?? CHEM GENERAL Sodium 143 mmol/L ()?? 12/09/2022 03:20 Potassium 3.6 mmol/L ()?? 12/09/2022 03:20 Chloride 105 mmol/L ()?? 12/09/2022 03:20 Bicarbonate Level 28 mmol/L ()?? 12/09/2022 03:20 Anion Gap 10 ()?? 12/09/2022 03:20 Glucose Level 94 mg/dL ()?? 12/09/2022 03:20 BUN 8 mg/dL ()?? 12/09/2022 03:20 Creatinine-Blood 0.9 mg/dL ()?? 12/09/2022 03:20 Estimated GFR Creatinine 85 ML/MIN/1.73 M2 ()?? 12/09/2022 03:20 Calcium 9.0 mg/dL ()?? 12/09/2022 03:20 Protein, Total 6.7 Gm/dL ()?? 12/09/2022 03:20 Albumin 4.0 Gm/dL ()?? 12/09/2022 03:20 AG Ratio 1.5 ()?? 12/09/2022 03:20 Alkaline Phosphatase 107 units/L ()?? 12/09/2022 03:20 Lipase 51 units/L ()?? 12/09/2022 03:20 AST (SGOT) 19 units/L ()?? 12/09/2022 03:20 ALT (SGPT) 10 units/L ()?? 12/09/2022 03:20 Bilirubin, Total 0.5 mg/dL ()?? 12/09/2022 03:20 ?? HEME OTHER Hold Lavender Top SPECIMEN DISCARDED AFTER 24 HOURS. ()?? 12/09/2022 03:20 Hold Blue Top SPECIMEN DISCARDED AFTER 4 HOURS. ()?? 12/09/2022 03:20 ?? UA/URINALYSIS Appear/Color, Urine LIGHT YELLOW ()?? 12/09/2022 10:20 Specific [place], Urine 1.041 (High)?? 12/09/2022 10:20 pH, Urine 7.0 ()?? 12/09/2022 10:20 Albumin, Urine TRACE (Abnormal)?? 12/09/2022 10:20 Glucose, Urine NEGATIVE ()?? 12/09/2022 10:20 Ketones, Urine NEGATIVE ()?? 12/09/2022 10:20 Bilirubin, Urine NEGATIVE ()?? 12/09/2022 10:20 Hemoglobin, Urine NEGATIVE ()?? 12/09/2022 10:20 Nitrite, Urine NEGATIVE ()?? 12/09/2022 10:20 Leukocyte, Urine NEGATIVE ()?? 12/09/2022 10:20 Urobilinogen NORMAL mg/dL ()?? 12/09/2022 10:20 WBC's, Urine <1 /HPF ()?? 12/09/2022 10:20 RBC's, Urine 2 /HPF ()?? 12/09/2022 10:20 Hold Urine Culture Testing available 48 hours from time of collection. ()?? 12/09/2022 10:20 ?? VIROLOGY COVID-19 by RT-PCR NEGATIVE ()?? 12/09/2022 19:01 ? * Palmer MD, Angelito: PERFORM Event Display: Admission Note Authored Date: ?? Attending Attestation: I have seen and evaluated this patient.?? I have discussed the case and its management with the resident and agree with the findings and hayley documented in the resident's note.?? I?? will continue to provide care to this patient till 7 AMof the admitting date. 82-year-old male with past medical history of dementia, hyperlipidemia, hypothyroidism, seizure disorder, stroke, TIA who did come with a complaint of fall.?? Unable to recall what really happened tohim.?? Patient was discharged back to the rehab after evaluation yesterday.?? Today he came back again with a complaint of unwitnessed fall again.?? He was found on the floor next to the bed.?? He was unable to tell what really happened to him.?? CT of the head ruled out any acute abnormality.?? CTof the abdomen and pelvis also ruled out any traumatic injury.?? He did have 2 unwitnessed fall within 48 hours and?? there was a concern of a syncopal episode.?? He is admitted for further observation.?? Lab work-up was nondiagnostic with stable chronic anemia.?? EKG showed no acute change.?? CT of the cervical spine ruled out any fracture or malalignment.?? Case management is involved.?? We will have delirium precaution.?? Avoid anticholinergics, benzodiazepines, and opiates. Avoid restraints. Family at bedside as much as possible. Frequent reorientation. Constant biosecurity officer as needed . OOB to chair for meals,?maintain hydration. Close monitoring for constipation and urinary retention.Room bright during day, and dim at night. Uninterrupted sleep at night. Ambulate with assistance aspossible .?? No signs or symptoms of infectious etiology.?? We will get orthostatic blood pressure c hanges. EKG study * Event Display: ECG 12-Lead Authored Date: Please click on pdf link to open report * Event Display: ECG 12-Lead Authored Date: Ventricular Rate: 61 BPM Atrial Rate: 61 BPM P-R Interval: 198 ms QRS Duration: 82 ms Q-T Interval: 424 ms QTC Calculation(Bazett): 426 ms P [place]: 90 degrees R [place]: 55 degrees T [place]: 49 degrees Normal sinus rhythm Normal ECG When compared with ECG of 07-DEC-2022 06:41, No significant change was found Confirmed by DELLA WAGNER ([id number]) on 12/14/2022 10:47:42 AM [place]: DELLA WAGNER Cardiology * Event Display: Cardiac Rhythm Strips Authored Date: Hospital Progress note * Zacarias CALDWELL, [facility]: PERFORM Event Display: Progress Note Hospital Authored Date: [id number] Patient: ??YULY HUSSEIN ? Age:??82 Years?Sex:??Male?:??1940?? Subjective Overnight Events: No acute overnight events. ?? Day Events: Patient AAox1. Denies pain. Does not complain of headaches, shortness of breath, abdominal pain. Other ROS unreliable given mental status. ?? Review of Systems A full review of systems was completed and??was otherwise negative except as mentioned in history of present illness. Objective ?? Physical Exam General: No acute distress HEENT: EOMI. CV: Regular rate and rhythm. Respiratory: All [place] clear to auscultation bilaterally. GI: Soft, nontender. Bowel sounds noted Extremities: No lower extremity edema Neuro: AAO x1.??Moves all extremities spontaneously. Sensation intact _ Inpatient Medications Medications (16) Active SCHEDULED: (8) Atorvastatin 40 mg Tablet (atorvastatin 40 mg oral tablet) ??40 mg, By Mouth, Daily at bedtime Enoxaparin 40 mg Inj (Enoxaparin Inj) ??40 mg 0.4 mL, Subcutaneous Injection, Daily Escitalopram 10 mg Tablet (Lexapro 10 mg oral tablet) ??15 mg, By Mouth, Daily Levothyroxine 125 mcg Tablet (levothyroxine 125 mcg (0.125 mg) oral tablet) ??125 mcg, By Mouth, Daily Memantine 10 mg Tablet (memantine 10 mg oral tablet) ??10 mg, By Mouth, 2 times a day NaCl 0.9% Flush 3ml (NaCL 0.9% Flush) ??3 mL, IV Push, Every 8 hours Pantoprazole 20 mg EC Tablet (Protonix 20 mg oral delayed release tablet) ??20 mg, By Mouth, Daily Trazodone 50 mg Tablet (traZODone 50 mg oral tablet) ??50 mg, By Mouth, Daily at bedtime CONTINUOUS: (1) NaCL 0.9% (1000 mL) Cont IV 1,000 mL (0.9% NaCL 1,000 mL) ??1,000 mL, IV Infusion, 75 mL/hr PRN: (7) Acetaminophen 325 mg Tablet (Acetaminophen Tablet) ??650 mg, By Mouth, Every 4 hours Dextromethorphan-Guaifenesin 20 mg-200 mg/10 mL Liqu UD (Robitussin DM Liquid) ??10 mL, By Mouth, Every 4 hours Melatonin 3 mg Tablet (Melatonin Tablet) ??3 mg, By Mouth, Daily at bedtime NaCl 0.9% Flush 3ml (NaCL 0.9% Flush) ??3 mL, IV Push, Every 8 hours Polyethylene Glycol 17 Gm Powder (MiraLax Powder) ??17 Gm 1 pack/packet, By Mouth, Daily Senna 8.6 mg / Docusate 50 mg tablet (Docusate/Senna Tablet) ??1 tablet, By Mouth, 2 times a day Simethicone 80 mg Chewable Tablet (Simethicone Tablet) ??80 mg, Chew, 3 times a day ? Assessment/Plan ?? 82 year old male, with a MHx of Vascular Dementia,prior aneurysmal hemorrhage,??Seizure Disorder, Hypothyroidism, Cervical lordosis, recurrent??falls -??presented from [facility] to [facility] on 12/11 due to a fall. CTH w/ left frontal lobe areas of unchanged encephalomalacia, no??hemorrhage.??Noted to have Orthostatic hypotension - ongoing management. Awaiting SNF Memory Care unit placement. ?? Recurrent Falls Orthostatic hypotension - At risk of further falls given identified orthostasis, dementia. - Cervical degenerative disc disease on CT, however currently not deemed to be?? acutely contributory to fall. - Significant overall??functional decline in last 4 - 6 months. Plan: -??Encourage PO??hydration - Measure orthostats again on 12/14 AM with lying and standing position ?? Vascular dementia At risk of Delirium ?? Plan: - Bladder scan x 3 - Consider Deprescribing/dose reduction of memantine in the outpatient setting with PCP - Ensure ambulating with assistance as needed - Reducing memantidine with PCP as recommended by geriatrics ?? - Please try non pharmacological interventions first for delirium -??frequent reorientation/redirection/reassurance, encourage family visits/calls - adequate control of pain - monitor for urinary retention, constipation - sleep hygiene (bright light in day, dim at night, limit VS checks/interruptions at night time) - encourage oral hydration and nutrition - window side bed if possible - engage during the daytime so they sleep more at night - out of bed to chair during the daytime, ambulate TID with assistance - 1:1 sitter if needed -??please avoid restraints as they worsen delirium - Please avoid benzos, antihistamines, anticholinergics ?? CHRONIC/STABLE/RESOLVED MEDICAL CONDITIONS ?? Abdominal pain, resolved - CT-AP negative for any acute traumatic injury ?? Cervical lordosis, moderate to severe degenerative disc disease. - Identified on CT imaging, unlikely contributing significantly at this point. Unlikely candidate for surgical intervention. Plan - If clinical change to neuro symptons or exam findings, Consider MRI C-spine ?? Hypothyroidism - Continue levothyroxine at 125 micrograms ?? Seizures, Not on anti-epileptic medication at present - Continue to monitor for any seizure like acitivity ?? Quality Metrics Code Status:?? DNR DVT prophylaxis : lovenox Cardiac Diet Health Care Proxy:??Daughter Yesy OMN: Orthostatic vitals + SNF Memory Unit placement ?? Patient seen and discussed with the attending physician, Dr. Zuleta. Carlos Adames MD Internal Medicine Resident Pager #[phone] ?? This note was dictated??by [employer] voice detection software,??for any errors??or clarifications, please do not hesitate to reach out for clarifications. * Delicai Matos RN: VERIFY, MODIFY, SIGN, PERFORM, SIGN Event Display: Progress Note Hospital Authored Date: [id number] Patient: YULY HUSSEIN Age: 82 years Sex: Male : 1940 Associated Diagnoses: None Author: Delicia Matos RN Findings Nursing Data Vital Signs : VITAL SIGNS SECTION 12/13/2022 9:27 EDT Pulse Rate, Lying 68 bpm Systolic Blood Pressure, Lying 113 mm Hg Diastolic Blood Pressure, Lying 70 mm Hg Pulse Rate, Sitting 69 bpm Systolic Blood Pressure, Sitting 100 mm Hg Diastolic Blood Pressure, Sitting 87 mm Hg 12/13/2022 4:43 EDT Temperature 97.5 DegF Temperature Route Axillary Pulse Rate 63 bpm Respiratory Rate 17 br/min Systolic Blood Pressure 122 mm Hg Diastolic Blood Pressure 83 mm Hg Blood pressure sites Arm, right Mean Arterial Pressure 96 mm Hg Pulse Pressure 39 mm Hg Oxygen Saturation 98 % Mode of Delivery (Oxygen) Room air . Narrative/Incidental Pt is alert and oriented to self only. Speech is clear, SRINIVASAN, 3/5 (+) generalized weakness and stiffness noted. Able to stand at bedside with walker and 2 max assist. Pt denies pain, however yells out with turning and repositioning- needs frequency reassurance. LS CTA. Denies sob, cough, chest pain, palps. Refuses to wear tele monitor. O2 on RA. Abd snt, flat. (+) bs x4. LBM today (incontinent) brown, mushy stool. Tolerating cardiac diet with 1:1 feed. Denies n/v/d. Swallowing intact, takes pills crushed with applesauce. Pt has mixed incontinence with urine. Primift off and was able to void in urinal with assist. Urineclear and yellow. Skin intact, pale and intact. (+)pp, no edema. IVF infusing as ordered. Safety maintained, call lucas in reach. Bed alarm on. *Bladder scan/PVR this AM= 228cc Orthos obtained for lying and sitting only. * Shaji Butts RN: PERFORM, SIGN, VERIFY Event Display: Progress Note Hospital Authored Date: [id number] Patient: YULY HUSSEIN Age: 82 years Sex: Male : 1940 Associated Diagnoses: None Author: Shaji Butts RN Findings Problem Related to Alteration in Psychosocial : Alteration in Psychosocial Function/new 12/12/2022 21:00 EDT Alteration in Psychosocial Related to Delirium Goals & Outcomes, Psychosocial Psychosocial support will be provided to Pt/S.O. as needed, Pt will experience a decrease in delirium Interventions, Psychosocial Assess psychosocial needs, Assess readiness to learn needed lifestyle changes, Assess/monitor level of consciousness, Offer support; discuss coping strategies, Provide a calm, supportive environment, Provide verbal limits if pt's behavior escalates, Ensure adequate time for sleeping at night, Evaluate & document effectiveness of anti-delirium meds, Obtain order for sleeping agent as needed, [place] pt to night & day BH Goals/Interventions, Psychosocial Yes Psychosocial, Problem Start 12/12/2022 21:00 Reviewed Plan with, Psychosocial Patient Patient Progression, Psychosocial Pt progressing according to plan . Nursing Data Vital Signs : VITAL SIGNS SECTION 12/12/2022 20:28 EDT Temperature 98.0 DegF Temperature Route Oral Pulse Rate 68 bpm Respiratory Rate 18 br/min Systolic Blood Pressure 97 mm Hg Diastolic Blood Pressure 50 mm Hg L Blood pressure sites Arm, right Mean Arterial Pressure 66 mm Hg Pulse Pressure 47 mm Hg Oxygen Saturation 95 % Mode of Delivery (Oxygen) Room air . Narrative/Incidental Patient received alert and oriented to self. In no distress. On room air. No complaints of pain. Repositioned throughout the shift. Bedfast overnight. Safety measures and hourly rounding in place. Call light in reach and bed alarm on. Care and observation continues. Discharge Information Case Management Discharge Plan : Case Management Discharge Plan Data 12/11/2022 10:25 EDT Discharge Level of Care at Discharge Homehealth/VNA Discharge VNA/Hospice/Home Care [facility] [phone] Assisted Living Facilities [facility] Assisted Living [facility] Discharge Transportation Arranged [facility] [address] [id number] [phone] Mode of Transportation Arranged Ambulance Name of Agency #1 [facility] Service Categories #1 Physical Therapy, Fdc Service Comments #1 You have been set up with homecare services, please allow the agency 24-48 hours to contact you in regards to your first appointment, if you do not hear from them in this timeframe please call the agency. Thank you 12/07/2022 11:09 EDT Discharge Level of Care at Discharge nursing home facility Rehabilitation Discharge : Rehab Discharge Index 12/10/2022 6:21 EDT Comments on treatment indicated 82 M admitted 2' unwitnessed fall, syncope. WBAT. PMH: dementia. Skilled PT for amb c RW, transfers, strength, balance, safety. Rec rehab Distance pt will ambulate > 10 feet c RW Full chart review completed Yes Other findings see comment Plan of care PT Gait training, Transfer training, Therapeutic exercise, Functional Activities, Balance training, Neuromuscular education Consult note * Mariza Jeronimo: PERFORM, MODIFY Event Display: Consultation Note Authored Date: [id number] Patient: ??YULY HUSSEIN ? Age:??82 Years?Sex:??Male?:??1940?? Chief Complaint unwitnessed fall at assisted living facility, [facility] History of Present Illness Reason for consult:??Dementia with Behaviors ?? Referring physician:?Urmy ?? Source of Information/reliability:??Chart,??family members. ?? History of Present Illness:??This is an 82-year-old man with past medical history notable for vascular dementia,??hypothyroidism, prior subarachnoid hemorrhage, prior seizure, presented from assistedliving??after an unwitnessed fall. ??History obtained from the medical record and from the daughterMichelle who is at the bedside who??provided additional collateral information.?? According to the records, patient had an unwitnessed fall out of his bed??and was found??near??the bed on the ground??holding his head.?? He was not complaining of any??pain or discomfort at the time.?? Patient underwent work-up in the ED including CT head, CT C-spine which showed??no evidence of fracture or bleed.?? EKG demonstrated sinus rhythm, normal intervals and no axis deviation, no ST changes or T wave inversions.?? Chest x-ray did not show any evidence of focal consolidations, pulmonary edema, pleural effusions or pneumothorax.?? On labs, no evidence of leukocytosis, hemoglobin shows normocytic anemiaof 11.2 with MCV of 93.4.?? All other electrolytes within normal limits.?? High- sensitivity troponin negative, plateaued at 17.?? Urinalysis is unremarkable.? Daughter today reports that??patient??has had multiple falls over the course of the last month.?? The majority of falls occur??overnight with the patient attempting to exit the bed??during the night.??In fact,??has had 3 falls in the last month??with the patient??attempting to exit the bed??and falling next to the bed.?No reported??injuries from falls.? 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 Following this, patient??relocated to the??region. ??Had improvement??with respect to hemiparesis but this left him with persistent??aphasia??as well as??some cognitive impairment.?? Continued to struggle cognitively and had a series of??vascular events (details unclear per daughter).?? Daughter also indicates that prior to his??cerebral aneurysm, he ma y have had some?? seizures or??mini strokes . ??Details unclear.?? He was followed by a neurologist in [place].?? Cognition??has??deteriorated over??time. ?? Patient??moved to??independent living at [facility] in 2016??and was walking independently??with a 4 wheeled walker??up until July??of this year (2022).?? Had a brief hospitalization in July??2022??forGI illness??followed by a rehab stay at [facility].?? During this time, daughter reports patient had a decline??in his ambulation??and notes??became wheelchair??dependent??for unclear reasons.?? Eventually??transitioned to the memory care unit at [facility]??and then to his current residence at[facility] [place] living??memory care unit.? At the present time, patient??is??dependent for all ADLs, incontinent of bowel and bladder??but is able to feed himself.?? per daughter, he is able to stand/pivot transfer with assist of one.?? Daughter is concerned regarding his ongoing ability to??be cared for at??assisted living.?? She is investigating alternative??solutions??including privately hiring for nighttime??support as well as [facility]. ?? Patient was seen by PT 12/09/22:?? unable to stand.?? concern for orthostasis.?? Rehab recommended.? Social history:??Patient is a twin (brother ??at ).??Born In [place].?Reportedly had??multiple surgeries??in childhood including eye surgery.?? 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 of cancer 10 years ago. ? Encounter with patient at bedside:?Patient seen with daughter/HCP Yesy at bedside.?? He was fully awake, eating??meal.?? Hard of hearing.?? Participated in??exam but needed repetition??for thoroughness and completion of tasks.?? Did not directly answer questions??was tangential??and confabulatory.?? Irritable with PCT's??when they interrupted our visit to perform vital signs??but easily redirected by his daughter. ? Baseline Cognitive Function:??Impaired. ??See HPI. ?? Mood:? pt enjoys:??Spending time with family. ??Previously??loved walking. ?? Balance/Gait/Falls:??See HPI. ? Nutrition (Weight loss/ gain, trouble chewing/swallowing):??No concerns??per daughter. ? Elimination (constipation, incontinence):??Incontinent??of both bowel and bladder. ??According to daughter, often yells out??while??having bowel movement??and urinating for unclear reasons. ?? Sleep:??Frequently??attempts to get up during the night??and??exit the bed. ?? Hearing/vision:??Impaired. ? Review of Systems Unreliable Due to aphasia and impaired Cognition but denied pain, DARBY, neck pain, UE pain or stiffness, LE weakness or pain ??but did say LE said ++stiffness (not new per daughter). Physical Exam Vitals & Measurements T:??98.2?F?? TMIN:??97.5?F?? TMAX:??98.4?F?? HR:??60??(Peripheral)?? RR:??18?? BP:??105/56?? SpO2:??96%? Gen - alert NAD, thin frame.?? HEENT - anicteric sclera, EOMI, right eye disconjugate??(chronic).?? Oral mucosa moist. Cardiovascular - RRR w/o murmur/gallop Respiratory - CTA w/o wheezing/crackles; no use of accessory muscles Gastrointestinal - soft, NT/ND, BS+ Ext - no edema LE B/L; no swelling/tenderness in the knees B/L Neuro - AOx1-2?? could not identify daughter by name or relationship at the bedside but was able tostate he was in some hospital , not able to tell me why he was here or circumstances of his admission. Motor: 5/5 bilateral UE, LE: grossly 5/5, ? increased tone to LE vs poor relaxation, neg Lindsay's in Both UE, DTR's not brisk, no ankle clonus Transfers: mod assist of 1 to come to sitting, max assist of 2-3 to stand with drop in BP 135/56 sitting, to 90/60 in stance at which point he began to yell, and have BM, pulse increased to 200 transiently??(? accurate) Skin - no rash noted Psy - calm, cooperative, smiling.?? Jovial and joking.?? Answers questions with questions ( where are you from?--> My mother ) Assessment/Plan This is an 82 year old man with the above noted PMH including apparent Vascular Dementia, prior aneurysmal hemorrhage,?? hypothyroidism,?? prior seizure, recurrent falls, gait dysfunction presenting from [facility] after falling out of bed.?? No injury reported or noted.?? Head CT notable for??areas of unchanged encephalomalacia involving the left frontal lobe,??other chronic findings. ??CT cervical spine??indicated moderate to severe degenerative disc space narrowing at all levels??and possible??straightening of the cervical lordosis??(can be indicative of??spasm) however patient without complaints.?? Noted to have orthostatic??hypotension today during my visit with??drop in systolic blood pressure from 135/56 to 90/60 at the bedside. ?? Patient certainly is at risk for recurrent falls given??orthostasis,??dementia. ??In addition??has CT C-spine findings that could be concerning for degenerative disc disease??that may be playing a role however appears to be asymptomatic at this time and no evidence of cervical myelopathy on physical exam although difficult to precisely determine.?? Spent considerable time the bedside with the daughter today discussing ways to improve the patient's safety at the assisted living facility.?? He previously was ambulatory??and has had a decline in his mobility over the last??4 to 5 months.? He??may benefit from??a trial of several of the following??including:??Low bed,??low bed with mattress on the floor,??removable side rails, bed alarms,??frequent??staff checking during the night, moving bed closer to the nurses station??however several of these may be subject to various facility??re gulations and may not be able to be accommodated??at the [facility]. ? May also??need to be optimized with respect to his??vital signs to mitigate his fall risk.?? Consider Deprescribing/dose reduction of memantine in the outpatient setting with PCP-daughter is interested in this as she feels it is not helping and he is progressing. In all likelihood he may??need??a higher level of care that could be accommodated at the assisted living facility. ??Discussed in detail with daughter regarding??transitioning to long-term care. ??She is??already??actively researching this. ??She is also??temporarily interested in privately hiring for nighttime ? MIND ??At risk for delirium - Please try non pharmacological interventions first for delirium -??frequent reorientation/redirection/reassurance, encourage family visits/calls - adequate control of pain - monitor for urinary retention, constipation - sleep hygiene (bright light in day, dim at night, limit VS checks/interruptions at night time) - encourage oral hydration and nutrition - window side bed if possible - engage during the daytime so they sleep more at night - out of bed to chair during the daytime, ambulate TID with assistance - 1:1 sitter if needed -??please avoid restraints as they worsen delirium - Please avoid benzos, antihistamines, anticholinergics ?? #Dementia?? 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 MOBILITY Recurrent Falls, physical deconditioning -Clearly has had a decline in overall functioning over the last 4 months -Orthostasis may be playing a role -PT recommended rehab -could consider MRI C-spine if considering Cervical??DDD/myelopathy but no clear clinical??exam findings, ??but doubt he could sit in scanner, also doubt he would be a candidate for surgery -check bladder scans x 3 values to eval for retention. ? MATTER MOST #Advance Directives Health Care Proxy:??Daughter Yesy Code Status:?? DNR ? #Discharge Planning - Please f/u case management for placement and arranging services.? D/w MD, CM, RN, PCT ?? Thank you for referral, please page Geriatrics Inpatient Consult Service if we can provide further assistance in patient care. Total Time Spent I personally spent a total of 137??minutes, including both npmi-nb-mauk and zni-amvj-ex-face time on the date of the encounter, addressing the above diagnoses. ?? Communication with other health care providers ?? Problem List/Past Medical History Ongoing Depression Hyperlipidemia Hypothyroidism Vascular dementia Medications Inpatient 0.9% NaCL 1,000 mL, 1000 mL, IV Infusion Acetaminophen Tablet, 650 mg, By Mouth, Every 4 hours, PRN atorvastatin 40 mg oral tablet, 40 mg, By Mouth, Daily at bedtime Docusate/Senna Tablet, 1 tablet, By Mouth, 2 times a day, PRN Enoxaparin Inj, 40 mg= 0.4 mL, Subcutaneous Injection, Daily levothyroxine 125 mcg (0.125 mg) oral tablet, 125 mcg, By Mouth, Daily Lexapro 10 mg oral tablet, 15 mg, By Mouth, Daily Melatonin Tablet, 3 mg, By Mouth, Daily at bedtime, PRN memantine 10 mg oral tablet, 10 mg, By Mouth, 2 times a day MiraLax Powder, 17 Gm= 1 pack/packet, By Mouth, Daily, PRN NaCL 0.9% Flush, 3 mL, IV Push, Every 8 hours NaCL 0.9% Flush, 3 mL, IV Push, Every 8 hours, PRN Protonix 20 mg oral delayed release tablet, 20 mg, By Mouth, Daily Robitussin DM Liquid, 10 mL, By Mouth, Every 4 hours, PRN Simethicone Tablet, 80 mg, Chew, 3 times a day, PRN traZODone 50 mg oral tablet, 50 mg, By Mouth, Daily at bedtime Home atorvastatin 40 mg oral tablet, 40 mg= 1 tablet, By Mouth, Daily levothyroxine 125 mcg (0.125 mg) oral tablet, 125 mcg= 1 tablet, By Mouth, Daily Lexapro 10 mg oral tablet, 15 mg, By Mouth, Daily memantine 28 mg oral capsule, extended release, 28 mg= 1 capsule, By Mouth, Daily Tylenol 8 HR Arthritis Pain 650 mg oral tablet, extended release, 1300 mg= 2 tablet, By Mouth, Every 8 hours, PRN Allergies No Known Medication Allergies Social History Alcohol Use: Never. Electronic Cigarette/Vaping Electronic Cigarette Use: Never. Substance Abuse Use: Never. Tobacco Use: Never (less than 100 in lifetime). Lab Results Test Name Test Result Date/Time WBC 4.5 k/mm3 12/11/2022 00:53 EDT Hgb 11.9 Gm/dL 12/11/2022 00:53 EDT Platelet Count 180 k/mm3 12/11/2022 00:53 EDT Sodium 141 mmol/L 12/11/2022 00:53 EDT Potassium 3.9 mmol/L 12/11/2022 00:53 EDT BUN 11 mg/dL 12/11/2022 00:53 EDT Creatinine-Blood 1.0 mg/dL 12/11/2022 00:53 EDT Diagnostic Results (12/09/2022 17:[address] Cervical Spine W/O Contrast) Spine:?? Image quality is significantly degraded by patient motion artifact at the skull base and upper cervical spine. No obvious fracture is identified but subtle pathology may be obscured as above. Nonspecific straightening of lordosis which may be positional. No gross chad or retrolisthesis. Moderate to severe degenerative disc space narrowing at all levels. No locked or perched facets. ?? Soft tissues and lung apices:?? Incidental patulous esophagus. Clear lung apices. ?? IMPRESSION:? Motion degraded examination. No cervical fracture or malalignment is identified. [1] ?? (12/09/2022 04:[address] Head/Brain W/O Contrast) BRAIN AND EXTRA-AXIAL SPACES: ?? Unchanged encephalomalacia involving the left frontal lobe No parenchymal hemorrhage, midline shift, or mass effect. Major-white matter differentiation is wellpreserved. No acute infarct. Negative insular ribbon sign. Atherosclerotic vascular calcification of the carotid arteries but negative hyperdense vessel sign. ? Moderate prominence of the ventricles and sulci consistent with parenchymal volume loss. ? Moderate low-density white matter changes. ?? No subarachnoid hemorrhage. No subdural or epidural collection. ?? CALVARIUM, SKULL BASE, AND SOFT TISSUES: No fractures or suspicious bony lesions.? The paranasal sinuses and mastoid air cells are clear. ?? Status-post bilateral lens extraction.? The extracranial soft tissues are unremarkable. ?? IMPRESSION: ?? No acute intracranial pathology. [2] ?? (12/09/2022 04:[address] Abd/Pelvis W/ IV Contrast Only) IMPRESSION:? No evidence of traumatic injury in the abdomen or pelvis. [3] [1]??CT Cervical Spine W/O Contrast; Rashad Lucas MD 12/09/2022 17:50 EDT [2]??CT Head/Brain W/O Contrast; Jerome Ivey MD 12/09/2022 04:22 EDT [3]??CT Abd/Pelvis W/ IV Contrast Only; Viet Shore MD 12/09/2022 04:22 EDT Note * Shaneka Cunningham RN: PERFORM Event Display: Discharge/Transfer Note Hospital Authored Date: [id number] Nursing Discharge Note Entered On: 12/14/2022 14:17 EDT Performed On: 12/14/2022 14:17 EDT by Shaneka Cunningham RN Nursing Discharge Note 2 Discharge Time : 12/14/2022 14:35 EDT Discharge Comments : orthos taken after bolus, reported to Dr. Patel, pt ready for dc Shaneka Cunningham RN - 12/14/2022 14:37 EDT Discharge Level of Care at Discharge : nursing home facility Discharge Nursing Homes/Rehab Facilities : [facility] Discharge VNA/Hospice/Home Care([id number]) : [facility] [phone] Patient Left Unit Via : Ambulance Patient Accompanied Off Unit with : [facility] Personnel Handover Given to Transport Personnel : Yes DC Instructions Provided & Signed by Pt : Yes Patient Understands D/C Instructions : Yes Verbalized Understanding of D/C Plan By : Patient Patient Instructions Discharge Signed : Yes Did Pt have Specialty Bed or Wound Vac : Ashlyn Cunningham RN, Shaneka Corrales - 12/14/2022 14:17 EDT * Amanda CALDWELL, Samantha: PERFORM, MODIFY, MODIFY Event Display: Discharge/Transfer Note Hospital Authored Date: [id number] Patient: ??YULY HUSSEIN ? Age:??82 Years?Sex:??Male?:??1940?? Patient Information Discharge Location: Primary Care Physician: Makenzie Randhawa MD Admit Date/Time: 12/11/22 09:05 Discharge Disposition Discharge Disposition: [facility] Facility/Rehab Discharge Diagnosis Fall (W19.XXXA) Orthostatic hypotension??- secondary to dehydration ?? _ Discharge Medications Acetaminophen (Tylenol 8 HR Arthritis Pain 650 mg oral tablet, extended release)?2?tab(s)?1,300?Milligram?By Mouth?Every 8 hours?as needed?Pain , Mild Atorvastatin (atorvastatin 40 mg oral tablet)?1?tab(s)?40?Milligram?By Mouth?Daily Docusate-Senna (Docusate/Senna Tablet)?1?tab(s)?By Mouth?2 times a day?as needed?Constipation Escitalopram (Lexapro 10 mg oral tablet)?15?Milligram?By Mouth?Daily Levothyroxine (levothyroxine 125 mcg (0.125 mg) oral tablet)?1?tab(s)?125?Microgram?By Mouth?Daily?6 days a week. Memantine (memantine 28 mg oral capsule, extended release)?1?capsule?28?Milligram?ByMouth?Daily Pantoprazole (Protonix 20 mg oral delayed release tablet)?20?Milligram?By Mouth?Daily Polyethylene Glycol 3350 (MiraLax Powder)?1?pack/packet?17?gram?By Mouth?Daily?as needed?Constipation Simethicone (simethicone 80 mg oral tablet, chewable)?80?Milligram?Chew?3 times a day?as needed?Gas Trazodone (traZODone 50 mg oral tablet)?50?Milligram?By Mouth?Daily at bedtime ? Medications Started Nil Medications Discontinued Nil Doses Changed Nil PCP Follow-Up/Heads-Up - inpatient geriatric team recommended tapering off memantine, please follow-up Hospital Course Patient presented on 12-09-2022 following unwitnessed fall in assisted living facility. Fall was unwitnessed, patient was unable to recall event. 2 unwitnessed falls in the preceding 48 hours. Trauma work-up including CT abdomen pelvis, CT brain showed no injury secondary to the fall. Orthostasis was found on blood pressure management as inpatient, which likely contributed to the falls. NO infective aetiology identified. He was dehydrated as an inpatient, trialed on fluid bolus, blood pressure improved after. Geriatrics reviewed his inpatient and recommended decrease of??memantine??as an outpatient management of polypharmacy and recurrent falls.??Recommend encouraging p.o. intake??with fluids??to try and manage??the orthostasis. Patient d/c-ing to rehab, and back to assisted living. Medically ready for discharge to rehab facility. ?? Objective Assessment and Plan 82 year old male, with a MHx of Vascular Dementia,prior aneurysmal hemorrhage,??Seizure Disorder, Hypothyroidism, Cervical lordosis, recurrent??falls -??presented from [facility] to [facility] on 12/11 due to a fall. CTH w/ left frontal lobe areas of unchanged encephalomalacia, no??hemorrhage.??Noted to have Orthostatic hypotension. ?? Recurrent Falls Orthostatic hypotension - At risk of further falls given identified orthostasis, dementia. - Cervical degenerative disc disease on CT, however currently not deemed to be?? acutely contributory to fall. - Significant overall??functional decline in last 4 - 6 months. Recommendation: -??Encourage PO??hydration - Orthostatsis responded well to IV fluid bolus - Rehab ?? Vascular dementia At risk of Delirium ?? Plan: - Consider Deprescribing/dose reduction of memantine in the outpatient setting with PCP - Ensure ambulating with assistance as needed ?? Delirium recommendation??plan: - Please try non pharmacological interventions first for delirium -??frequent reorientation/redirection/reassurance, encourage family visits/calls - adequate control of pain - monitor for urinary retention, constipation - sleep hygiene (bright light in day, dim at night, limit VS checks/interruptions at night time) - encourage oral hydration and nutrition - window side bed if possible - engage during the daytime so they sleep more at night - out of bed to chair during the daytime, ambulate TID with assistance - 1:1 sitter if needed -??please avoid restraints as they worsen delirium - Please avoid benzos, antihistamines, anticholinergics ?? CHRONIC/STABLE/RESOLVED MEDICAL CONDITIONS ?? Abdominal pain, resolved - CT-AP negative for any acute traumatic injury. ?? Cervical lordosis moderate to severe degenerative disc disease. - Identified on CT imaging, unlikely contributing significantly at this point. Unlikely candidate for surgical intervention. ?? Hypothyroidism - Continue levothyroxine at 125 micrograms ?? Seizures Not on anti-epileptic medication at present - Continue to monitor for any seizure like acitivity ?? Vital Signs?? Temperature: 97.2 DegF (12/14/22 12:57:00) Temperature Route: Axillary (12/14/22 12:57:00) Pulse Rate: 60 bpm (12/14/22 12:57:00) Pulse Rate, Lyin bpm (12/14/22 09:00:00) Systolic Blood Pressure, Lyin mm Hg (12/14/22 09:00:00) Diastolic Blood Pressure, Lyin mm Hg (12/14/22 09:00:00) Pulse Rate, Sittin bpm (12/14/22 09:00:00) Systolic Blood Pressure, Sittin mm Hg (12/14/22 09:00:00) Diastolic Blood Pressure, Sittin mm Hg (12/14/22 09:00:00) Respiratory Rate: 18 br/min (12/14/22 12:57:00) Systolic Blood Pressure: 112 mm Hg (12/14/22 12:57:00) Diastolic Blood Pressure: 69 mm Hg (12/14/22 12:57:00) Blood pressure sites: Arm, right (12/14/22 12:57:00) Mean Arterial Pressure: 83 mm Hg (12/14/22 12:57:00) Pulse Pressure: 43 mm Hg (12/14/22 12:57:00) Oxygen Saturation: 97 % (12/14/22 12:57:00) Mode of Delivery (Oxygen): Room air (12/14/22 12:57:00) Early Warning Score: 2 (12/14/22 12:58:07) ? . Physical Exam General Appearance: The patient is in NAD. HEET: Atraumatic, normocephalic. Cardiovascular: RRR S1 and S2 heard. No murmurs, gallops, or rubs appreciated. Respiratory: ??Breath sounds clear to auscultation bilaterally at the axilla, limited??ability to sit forward for exam.??No wheezing. GI: Ongoing tenderness with voluntary guarding in the upper quadrants. Lesser tenderness in lower quadrants. No supr MS: ??No edema or erythema in the lower extremities Neuro: ??No slurred speech. Psych: Alert and oriented x1 (Not orientated to place or time). Appropriate and pleasant.?? Consultants Geriatrics Pending Results No Pending Results Patient Education Titles Fall Because of??Dizziness, Weakness, or Loss of Balance?? Fall with Uncertain Cause?? Fall with Uncertain Cause?? Follow-Up Appointments Added Follow Up ?Time Frame ?Comments Edis CALDWELL, May A?Only if Needed. Patient Instructions -follow up with PCP 1-2 week - take more fluids orally Home Health Face to Face ^HomeHealthFTF Results Discharge Labs BLOOD COUNT & DIFF WBC 4.4 k/mm3 ()?? 12/13/2022 01:31 RBC 3.70 m/mm3 (Low)?? 12/13/2022 01:31 Hgb 10.9 Gm/dL (Low)?? 12/13/2022 01:31 Hct 34.4 % (Low)?? 12/13/2022 01:31 MCV 93.0 femtoliters ()?? 12/13/2022 01:31 MCH 29.5 pg ()?? 12/13/2022 01:31 MCHC 31.7 g/dL (Low)?? 12/13/2022 01:31 Platelet Count 163 k/mm3 ()?? 12/13/2022 01:31 RDW-SD 56.3 femtoliters (High)?? 12/13/2022 01:31 MPV 9.0 femtoliters (Low)?? 12/13/2022 01:31 Nucleated RBC (Automated) 0.0 #/100 WBC'S ()?? 12/13/2022 01:31 Abs. NRBC 0.0 k/mm3 ()?? 12/13/2022 01:31 Abs. Neut 2.0 k/mm3 ()?? 12/09/2022 03:20 Abs. Lymph 1.5 k/mm3 ()?? 12/09/2022 03:20 Abs. [place] 0.4 k/mm3 ()?? 12/09/2022 03:20 Abs. Eo 0.1 k/mm3 ()?? 12/09/2022 03:20 Abs. Baso 0.0 k/mm3 ()?? 12/09/2022 03:20 Neut % 49.8 % ()?? 12/09/2022 03:20 Lymph % 37.9 % ()?? 12/09/2022 03:20 [place] % 8.9 % ()?? 12/09/2022 03:20 Eos % 1.5 % ()?? 12/09/2022 03:20 Baso % 0.7 % ()?? 12/09/2022 03:20 Imm Gran 1.2 % ()?? 12/09/2022 03:20 Abs. Imm Gran 0.1 k/mm3 ()?? 12/09/2022 03:20 ?? CARDIAC High Sensitivity Troponin (HSTnT) 17 ng/L ()?? 12/09/2022 06:00 ? CHEM GENERAL Sodium 142 mmol/L ()?? 12/13/2022 01:31 Potassium 3.6 mmol/L ()?? 12/13/2022 01:31 Chloride 107 mmol/L ()?? 12/13/2022 01:31 Bicarbonate Level 26 mmol/L ()?? 12/13/2022 01:31 Anion Gap 9 ()?? 12/13/2022 01:31 Glucose Level 89 mg/dL ()?? 12/13/2022 01:31 BUN 7 mg/dL (Low)?? 12/13/2022 01:31 Creatinine-Blood 1.0 mg/dL ()?? 12/13/2022 01:31 Estimated GFR Creatinine 74 ML/MIN/1.73 M2 ()?? 12/13/2022 01:31 Calcium 8.5 mg/dL (Low)?? 12/13/2022 01:31 Protein, Total 6.7 Gm/dL ()?? 12/09/2022 03:20 Albumin 4.0 Gm/dL ()?? 12/09/2022 03:20 AG Ratio 1.5 ()?? 12/09/2022 03:20 Alkaline Phosphatase 107 units/L ()?? 12/09/2022 03:20 Lipase 51 units/L ()?? 12/09/2022 03:20 AST (SGOT) 19 units/L ()?? 12/09/2022 03:20 ALT (SGPT) 10 units/L ()?? 12/09/2022 03:20 Bilirubin, Total 0.5 mg/dL ()?? 12/09/2022 03:20 ?? HEME OTHER Hold Lavender Top SPECIMEN DISCARDED AFTER 24 HOURS. ()?? 12/09/2022 03:20 Hold Blue Top SPECIMEN DISCARDED AFTER 4 HOURS. ()?? 12/09/2022 03:20 ?? UA/URINALYSIS Appear/Color, Urine LIGHT YELLOW ()?? 12/09/2022 10:20 Specific [place], Urine 1.041 (High)?? 12/09/2022 10:20 pH, Urine 7.0 ()?? 12/09/2022 10:20 Albumin, Urine TRACE (Abnormal)?? 12/09/2022 10:20 Glucose, Urine NEGATIVE ()?? 12/09/2022 10:20 Ketones, Urine NEGATIVE ()?? 12/09/2022 10:20 Bilirubin, Urine NEGATIVE ()?? 12/09/2022 10:20 Hemoglobin, Urine NEGATIVE ()?? 12/09/2022 10:20 Nitrite, Urine NEGATIVE ()?? 12/09/2022 10:20 Leukocyte, Urine NEGATIVE ()?? 12/09/2022 10:20 Urobilinogen NORMAL mg/dL ()?? 12/09/2022 10:20 WBC's, Urine <1 /HPF ()?? 12/09/2022 10:20 RBC's, Urine 2 /HPF ()?? 12/09/2022 10:20 Hold Urine Culture Testing available 48 hours from time of collection. ()?? 12/09/2022 10:20 ?? VIROLOGY COVID-19 by RT-PCR NEGATIVE ()?? 12/09/2022 19:01 ?Patient seen and discussed with attending, Dr. Zuleta ?? CHUCK Lara PGY-1, internal medicine-pediatrics?? Pager Number [phone] 30minutes spent on discharge * Octavio MORRISSEY, Shaneka Corrales: PERFORM Event Display: Patient Education/Instruction Authored Date: [id number] Inpatient Adult Discharge Instructions [place] [id number] Name: YULY HUSSEIN : 1940 Visit: 12/11/2022 09:05:00 Current Date: 12/14/2022 14:17 Account: [id number] Inpatient Adult Discharge Instructions We would like to thank you for allowing us to assist you with your healthcare needs. The following includes patient education materials and information regarding your injury/illness. Our entire staffstrives to provide an excellent experience for our patients and their families. PLEASE ENSURE YOU FOLLOW-UP PER THE INSTRUCTIONS BELOW! ?? YOUR OPINION IS IMPORTANT TO US! Please complete the survey you may receive by mail or email. Your feedback will be used to make improvements to the healthcare experiences of our patients and their families. Surveys are administered by [employer]. ?? If further treatment with your primary care physician or another doctor is recommended, it is important for you to keep the appointment. Call your primary care physician or return to the Emergency Department immediately if your condition worsens, fails to improve, or new symptoms develop. If you need to find a doctor, you can call [facility] [employer] for a referral at [phone] or toll free at [phone] ([phone]) or log in to [email or web address] ?? You can view and manage your care through the patient portal or by using a health care missy of your choosing. [employer] is a website that allows you to securely view your medical information including your hospital discharge summary, office visit summaries, medications and follow-up visits. You can also request appointments, renew medications, and request access to your medical information using a health care missy of your choosing, or just ask a question. You can enroll at [email or web address] or register during your next office visit. You have been discharged from [facility], Patient Care Unit: S3. If you have any questions regarding these instructions after you leave, please call us and we will be happy to assist you. [facility] Your Care Team Attending Physician Merlyn CALDWELL, Davis Discharging Providers Zacarias CALDWELL, Carlos Reason for Admission unwitnessed fall at assisted living [facility], [facility] Your Diagnosis Fall Fall Tests Performed Below is a partial list of the tests performed during your hospitalization. You may have had other tests and procedures not included in this list. Please discuss all test results with your provider. Basic Metabolic Panel BUN CBC CBC w/ Differential Comprehensive Metabolic Panel COVID-19 (Novel Coronavirus), Rapid PCR Creatinine HOLD BLUE TUBE HOLD LAVENDER TUBE Lipase Lytes Troponin T, High Sensitivity Urinalysis w/hold for Urine Culture CT Abd/Pelvis W/ IV Contrast Only CT Cervical Spine W/O Contrast CT Head/Brain W/O Contrast XR Chest 2 Views Frontal and Lat Primary Care Provider Edis CALDWELL, September A Advance Directive Health Care Proxy on File No Patient refuses to discuss Discharge Vitals Temperature: 97.2 DegF Weight: 66.1 kg Pulse Rate: 60 bpm ?? Respiratory Rate: 18 br/min ?? Systolic Blood Pressure: 112 mm Hg ?? Diastolic Blood Pressure: 69 mm Hg ?? Oxygen Saturation: 97 % ?? Studies Pending All tests and labs ordered during this hospital stay have been completed unless listed below. Please discuss all pending results with your provider listed above in these instructions. ?? No incomplete studies found What to do next Instructions From Your Doctor -follow up with PCP 1-2 week - take more fluids orally Discharge Orders You Need to Schedule the Following Appointments Follow Up with??Edis CALDWELL, September When:??Only if needed Where: [address] [facility] [address] [place] [address]- Discharge Medications KEENANYULY :1940 Visit Date:12/11/2022 Medications: Please continue your medications until treatment is completed or stopped by your provider. Medications not listed below should be discontinued. Discuss any questions related to medications with your provider. What How Much When Instructions Next Dose New Docusate-Senna (Docusate/ Senna Tablet) 1 tab(s) Oral Twice a day as needed for Constipation as needed New Pantoprazole (Protonix 20 mg oral delayed release tablet) 20 Milligram Oral Daily 12/15 tomorrow morning New Polyethylene Glycol 3350 (MiraLax Powder) 17 gram Oral Daily as needed for Constipation as needed New Simethicone (simethicone 80 mg oral tablet, chewable) 80 Milligram Chew 3 times a day as needed for Gas as needed New Trazodone (traZODone 50 mg oral tablet) 50 Milligram Oral Daily at Bedtime 12/14 tonight Changed Escitalopram (Lexapro 10 mg oral tablet) 15 Milligram Oral Daily 12/15 tomorrow morning Unchanged Acetaminophen (Tylenol 8 HR Arthritis Pain 650 mg oral tablet, extended release) 2 tab(s) Oral Every 8 hours as needed for Pain , Mild as needed Unchanged Atorvastatin (atorvastatin 40 mg oral tablet) 1 tab(s) Oral Daily 12/14 tonight Unchanged Levothyroxine (levothyroxine 125 mcg (0.125 mg) oral tablet) 1 tab(s) Oral Daily 6 days a week. ?? 12/15 tomorrow morning Unchanged Memantine (memantine 28 mg oral capsule, extended release) 1 capsule Oral Daily 12/15 tomorrow morning Test Results Below is a partial list of the most recent Laboratory test results done prior to this discharge. You may have had other tests and procedures not included in this list. Please discuss all test resultswith your provider. Basic Metabolic Panel (12/13/2022) ???Sodium - 142 mmol/L???Potassium - 3.6 mmol/L???Chloride - 107 mmol/L???Bicarbonate Level - 26 mmol/L???Anion Gap - 9???Glucose Level - 89 mg/dL???BUN - 7 mg/dL???Creatinine-Blood - 1.0 mg/dL???Estimated GFR Creatinine - 74 ML/MIN/1.73 M2???Calcium - 8.5 mg/dL BUN (12/11/2022) ???BUN - 11 mg/dL CBC (12/13/2022) ???WBC - 4.4 k/mm3???RBC - 3.70 m/mm3???Hgb - 10.9 Gm/dL???Hct - 34.4 %???MCV - 93.0 femtoliters???MCH - 29.5 pg???MCHC - 31.7 g/dL???Platelet Count - 163 k/mm3???RDW-SD - 56.3 femtoliters???MPV - 9.0 femtoliters???Nucleated RBC (Automated) - 0.0 #/100 WBC'S???Abs. NRBC - 0.0 k/mm3 CBC w/ Differential (12/09/2022) ???WBC - 4.0 k/mm3???RBC - 3.80 m/mm3???Hgb - 11.2 Gm/dL???Hct - 35.5 %???MCV - 93.4 femtoliters???MCH - 29.5 pg???MCHC - 31.5 g/dL???Platelet Count - 180 k/mm3???RDW-SD - 58.8 femtoliters???MPV - 8.7 femtoliters???Nucleated RBC (Automated) - 0.0 #/100 WBC'S???Abs. NRBC - 0.0 k/mm3???Abs. Neut - 2.0 k/mm3???Abs. Lymph - 1.5 k/mm3???Abs. [place] - 0.4 k/mm3???Abs. Eo - 0.1 k/mm3???Abs. Baso - 0.0 k/mm3???Neut % - 49.8 %???Lymph % - 37.9 %???[place] % - 8.9 %???Eos % - 1.5 %???Baso % - 0.7 %???Imm Gran- 1.2 %???Abs. Imm Gran - 0.1 k/mm3 Comprehensive Metabolic Panel (12/09/2022) ???Sodium - 143 mmol/L???Potassium - 3.6 mmol/L???Chloride - 105 mmol/L???Bicarbonate Level - 28 mmol/L???Anion Gap - 10???Glucose Level - 94 mg/dL???BUN - 8 mg/dL???Creatinine-Blood - 0.9 mg/dL???Estimated GFR Creatinine - 85 ML/MIN/1.73 M2???Calcium - 9.0 mg/dL???Protein, Total - 6.7 Gm/dL???Albumin - 4.0 Gm/dL???AG Ratio - 1.5???Alkaline Phosphatase - 107 units/L???AST (SGOT) - 19 units/L???ALT (SGPT) - 10 units/L???Bilirubin, Total - 0.5 mg/dL COVID-19 (Novel Coronavirus), Rapid PCR (12/09/2022) ???COVID-19 by RT-PCR - NEGATIVE Creatinine (12/11/2022) ???Creatinine-Blood - 1.0 mg/dL???Estimated GFR Creatinine - 76 ML/MIN/1.73 M2 HOLD BLUE TUBE (12/09/2022) ???Hold Blue Top - SPECIMEN DISCARDED AFTER 4 HOURS. HOLD LAVENDER TUBE (12/09/2022) ???Hold Lavender Top - SPECIMEN DISCARDED AFTER 24 HOURS. Lipase (12/09/2022) ???Lipase - 51 units/L Lytes (12/11/2022) ???Sodium - 141 mmol/L???Potassium - 3.9 mmol/L???Chloride - 105 mmol/L???Bicarbonate Level - 26 mmol/L???Anion Gap - 10 Troponin T, High Sensitivity (12/09/2022) ???High Sensitivity Troponin (HSTnT) - 17 ng/L Urinalysis w/hold for Urine Culture (12/09/2022) ???Appear/Color, Urine - LIGHT YELLOW???Specific [place], Urine - 1.041???pH, Urine - 7.0???Albumin, Urine - TRACE???Glucose, Urine - NEGATIVE???Ketones, Urine - NEGATIVE???Bilirubin, Urine - NEGATIVE???Hemoglobin, Urine - NEGATIVE???Nitrite, Urine - NEGATIVE???Leukocyte, Urine - NEGATIVE???Urobilin ogen - NORMAL? ?WBC's, Urine - <1 /HPF? ?RBC's, Urine - 2 /HPF? ?Hold Urine Culture - Testing available 48 hours from time of collection. Allergies (NKA means No Known Allergies) No Known Medication Allergies Problems Active Problems??(4) Depression?? Hyperlipidemia?? Hypothyroidism?? Vascular dementia?? Education Materials Below is the list of Educational Leaflet Providered with your Discharge Instructions. Fall Because of??Dizziness, Weakness, or Loss of Balance?? Fall with Uncertain Cause?? Fall with Uncertain Cause?? Valuables and Belongings I fully understand and agree that [facility] accepts no responsibility for all my personal property including clothing, toilet articles, radios, jewelry, dentures, hearing aids, rings, money, or any other property that is in my possession or is brought to me after admission. I understand certain valuables may be placed in a hospital safe for a short period of time. I understand that the hospital is not liable for loss or damage due to accident, fire, or other natural occurrence while said property is in the safe. I accept full responsibility for any personal property that I keep with me, and will not hold the hospital responsible in case of loss or disappearance. I acknowledge that i have been encouraged to send valuables and belongings home. ?? Review of Valuable and Belonging List: With patient, With witness Date for Pt to Sign Valuables/Belongings: 12/14/22 12:57:00 ?? Other Discharge Information ? Case Management Discharge Plan?? Discharge Plan?? Discharge Agency Information?? Discharge Level of Care at Discharge: nursing home facility Name of Agency #1: [facility] Discharge Transportation Arranged: [facility] [phone] Service Categories #1: Physical Therapy, [facility] Mode of Transportation Arranged: Ambulance Service Comments #1: You have been set up with homecare services, please allow the agency 24-48 hours to contact you in regards to your first appointment, if you do not hear from them in this timeframe please call the agency. Thank you Discharge Nursing Homes/Rehab Facilities: [facility] ?? Assisted Living Facilities: [facility] ?? Discharge VNA/Hospice/Home Care: [facility] [phone] ? Pulmonary Rehab Status?? Pulmonary Rehab Discharge Status?? Respiratory Rate: 18 br/min ? Common Emergency Awareness Tips IS IT A STROKE? Act FAST and Check for these signs: FACE Does the face look uneven? ARM Does one arm drift down? SPEECH Does their speech sound strange? TIME Call at any sign of stroke ?? Heart Attack Signs Chest discomfort: Most heart attacks involve discomfort in the center of the chest and lasts more than a few minutes, or goes away and comes back. It can feel like uncomfortable pressure, squeezing, fullness or pain. Discomfort in upper body: Symptoms can include pain or discomfort in one or both arms, back, neck, jaw or stomach. Shortness of breath: With or without discomfort. Other signs: Breaking out in a cold sweat, nausea, or lightheaded. Remember, MINUTES DO MATTER. If you experience any of these heart attack warning signs, call to get immediate medical attention! ?? Smoking can increase your chances of developing chronic health problems and can cause harmful effects to other family members in your house. If you smoke, you are strongly encouraged to quit. Please call [facility] [employer] [facility] at [phone] or [phone] ([phone]) or log in to [email or web address] for referrals to smoking cessation programs. ?? 126 Suicide & Crisis Lifeline is available 14/12 if you or someone you know needs to find a reason to keep living. By calling 602 you'll be connected to a skilled, trained counselor at a crisis center in your area. INPATIENT DISCHARGE INSTRUCTIONS SIGNATURE WAYNE HUSSEINYULY Location:[facility] Registration Date and Time:12/11/2022 09:05 EDT Primary Care Physician: Edis CALDWELL, September A, Attending Physician: Davis Zuleta MD, I YULY HUSSEIN, have received the above patient education materials/instructions and have verbalized understanding. If ambulance or transport services are being used I further acknowledge being given a choice of service. ?? If you need to contact me, please call me at this number: . Patient/Highballer Name: Patient/Highballer Signature: Relationship to Patient: Witness Name/Signature: Date: * Samantha Patel MD: PERFORM Event Display: Patient Education Leaflets Authored Date: [id number] Fall Because of??Dizziness, Weakness, or Loss of Balance ?? [id number] Fall Because of??Dizziness, Weakness, or Loss of Balance The symptoms that led to your fall have been evaluated. Your healthcare provider feels it's safe for you to return home. Many things can cause you to become dizzy. Everyone means a little something different by the word dizzy. People may describe their symptoms using these words: ??? It doesn???t feel right in??my head ??? It feels like spinning in??my head ??? It seems like the room is spinning ??? My balance feels off ??? I feel lightheaded, like I am going to pass out All these descriptions can have real causes.?? Your main balance mechanism is in your inner ear. Anything disturbing it can make you feel dizzy, whether it's from a cold, an injury, or many other things. Anything that causes your blood pressure to drop suddenly can make you feel lightheaded, or like you are going to faint. This is because at that moment there might not be enough blood flowing to your brain. Causes include: ??? Medicines ??? Dehydration ??? Standing up or bending over too quickly ??? Becoming overheated ??? Taking a hot shower or bath ??? Straining hard while lifting something or using the toilet ??? Strokes, heart attack, heart valve disease, very slow or very fast heart rate ??? Low blood sugar ??? Ear infection ??? Hyperventilation ??? Anemia (low red blood cell levels) ??? Injury ??? Infection ??? Panic attack ??? You may be at risk of repeat falls. Take precautions described below to prevent another fall. Home care ??? If you become lightheaded or dizzy, lie down immediately or sit and lean forward withyour head down. It's better to do this than fall and seriously hurt or injure yourself. ??? Rest today. When changing position,??take a moment to be sure any dizziness goes away before standing and walking. ??? If you have been prescribed a walker, be sure to use it whenever you walk, even if it's a short distance. ??? If you were injured during the fall, follow the advice from your healthcare provider regarding care of your injury. ??? Tell your healthcare provider about all the medicines, herbs, vitamins, and supplements you take. Some medicines can cause dizziness. ??? Cut back on alcohol use. ??? Don't drive until your healthcare provider says it's OK. You don't want to have a dizzy spell when you' re driving. ?? Follow-up care Unless you're given other advice, call your primary healthcare provider on the next office day to advise of your fall and to schedule a follow-up appointment. You may need further treatment for??the underlying condition that caused today???s fall. If X-ray or a CT scan were done, you'll be told of the results, especially if it affects treatment. ?? Call 911 Call 911 if any of these occur: ??? Trouble breathing ??? Confused or trouble arousing ??? Faintingor loss of consciousness ??? Rapid or very slow heart rate ??? Seizure ??? Trouble with speech or vision, weakness of an arm or leg ??? Trouble walking or talking, loss of balance ??? Numbness or weakness in 1 side of your body, facial droop ?? When to get medical advice Call your healthcare provider right away if any of these occur: ??? Another fall ??? More dizzy spells ??? Severe headache ??? Blood in vomit or stools (black or red color) ?? Last Reviewed Date: 2021 ?? [id number] [employer]. All rights reserved. This information is not intended as a substitute for professional medical care. Always follow your healthcare professional's instructions. ?? * Samantha Patel MD: PERFORM Event Display: Patient Education Leaflets Authored Date: [id number] Fall with Uncertain Cause ?? [id number] Fall with Uncertain Cause You had a fall today. But the cause of your fall is not certain. Falls can happen due to slipping, tripping, or losing your balance. A fall can also happen from a fainting spell or seizure. A fall can happen for a simple reason (such as tripping over something). But falls in older adults are often caused by a combination of things: ??? Age-related decline in function with worsening balance, stability, vision, and muscle strength ??? Chronic illness, such as heart arrhythmias, heart valve disease, vascular disease, COPD, diabetes, stroke, or arthritis ??? Shoes with lack of support that make you likely to slip or slide ??? Anemia or low blood pressure? Effects or side effects of medicines ??? Fluid loss (dehydration) orrecent alcohol use ??? Hazards in your home or around you, such as??uneven surfaces, slippery ground, an unfamiliar place, or obstacles ??? Something linked to an activity you were doing, such as rushing to the bathroom The cause of your fall today is not certain. So it's possible that it was due to a fainting spell or seizure. This means that it could happen again without warning. If you fall again without a cause,come back to this facility right away for more tests. Or follow up with your healthcare provider asexplained below. It's normal to feel sore and tight in your muscles and back the next day, and not just the muscles you first injured. All the parts of your body are connected. So while at first one area hurts, the next day another may hurt. Also, when you injure yourself, it causes inflammation. This makes your muscles tighten up and hurt more. After that, it should slowly improve over the next few days. Tell your provider if you have any more severe pain. Even without a definite head injury, you can still get a concussion. Concussions and bleeding can still happen, especially if you had a recent injury. Or if you take blood-thinner medicine. You may also have a mild headache. And you may feel tired and even nauseous or dizzy. Home care ??? Rest today and resume your normal activities as soon as you feel normal again. It's best to stay with someone. They can check on you for the next 24 hours to see if you fall again. ??? If you were hurt during the fall, follow your healthcare provider's advice on caring for your injury. ??? If you get lightheaded or dizzy, lie down right away. Or sit and lean forward with your head down. ??? For your safety, until you see your healthcare provider: o Don't drive a car or operate dangerous equipment. o Don't take a bath or shower alone. o Don't swim alone. A condition causing fainting or seizures must be ruled out before doing these activities. ??? You may use acetaminophen or ibuprofen to control pain, unless another pain medicine was prescribed. Talk with your provider beforeusing these medicines if you: o Have chronic liver or kidney disease o Ever had a stomach ulcer or??gastrointestinal bleeding o Take blood- thinning medicines ??? Keep your appointments for any further testing that may have been scheduled for you. ?? Follow-up care Follow up with your healthcare provider, or as advised. If X-rays or a CT scan were done, you will be told if there is a change in the reading, especially if it affects treatment. ?? Call 911 Call 911 if any of these happen: ??? Trouble breathing ??? Confusion ??? Trouble waking up ??? Fainting or loss of consciousness ??? Fast or very slow heart rate ??? Seizure ??? Speech or vision problems ??? Arm or leg weakness ??? Trouble walking or talking, loss of balance, numbness or weakness on one side of your body, or facial droop ?? When to get medical advice Call your healthcare provider right away if any of these happen: ??? Another unexplained fall ??? Dizziness ??? Severe headache ??? Nausea and vomiting ??? Blood in vomit, stools (black or red color) ?? Last Reviewed Date: 2022 ?? [id number] [employer]. All rights reserved. This information is not intended as a substitute for professional medical care. Always follow your healthcare professional's instructions. ?? * Delicia Matos RN: PERFORM Event Display: Discharge/Transfer Note Hospital Authored Date: [id number] Discharge Planning Nursing Entered On: 12/13/2022 7:40 EDT Performed On: 12/13/2022 7:39 EDT by Delicia Matos RN Discharge Planning Nursing Anticipated discharge : nursing home facility Delicia Matos RN - 12/13/2022 7:39 EDT * Mickey Whiting MD: PERFORM Event Display: Patient Education Leaflets Authored Date: [id number] Fall with Uncertain Cause ?? [id number] Fall with Uncertain Cause You had a fall today. But the cause of your fall is not certain. Falls can happen due to slipping, tripping, or losing your balance. A fall can also happen from a fainting spell or seizure. A fall can happen for a simple reason (such as tripping over something). But falls in older adults are often caused by a combination of things: ??? Age-related decline in function with worsening balance, stability, vision, and muscle strength ??? Chronic illness, such as heart arrhythmias, heart valve disease, vascular disease, COPD, diabetes, stroke, or arthritis ??? Shoes with lack of support that make you likely to slip or slide ??? Anemia or low blood pressure? Effects or side effects of medicines ??? Fluid loss (dehydration) orrecent alcohol use ??? Hazards in your home or around you, such as??uneven surfaces, slippery ground, an unfamiliar place, or obstacles ??? Something linked to an activity you were doing, such as rushing to the bathroom The cause of your fall today is not certain. So it's possible that it was due to a fainting spell or seizure. This means that it could happen again without warning. If you fall again without a cause,come back to this facility right away for more tests. Or follow up with your healthcare provider asexplained below. It's normal to feel sore and tight in your muscles and back the next day, and not just the muscles you first injured. All the parts of your body are connected. So while at first one area hurts, the next day another may hurt. Also, when you injure yourself, it causes inflammation. This makes your muscles tighten up and hurt more. After that, it should slowly improve over the next few days. Tell your provider if you have any more severe pain. Even without a definite head injury, you can still get a concussion. Concussions and bleeding can still happen, especially if you had a recent injury. Or if you take blood-thinner medicine. You may also have a mild headache. And you may feel tired and even nauseous or dizzy. Home care ??? Rest today and resume your normal activities as soon as you feel normal again. It's best to stay with someone. They can check on you for the next 24 hours to see if you fall again. ??? If you were hurt during the fall, follow your healthcare provider's advice on caring for your injury. ??? If you get lightheaded or dizzy, lie down right away. Or sit and lean forward with your head down. ??? For your safety, until you see your healthcare provider: o Don't drive a car or operate dangerous equipment. o Don't take a bath or shower alone. o Don't swim alone. A condition causing fainting or seizures must be ruled out before doing these activities. ??? You may use acetaminophen or ibuprofen to control pain, unless another pain medicine was prescribed. Talk with your provider beforeusing these medicines if you: o Have chronic liver or kidney disease o Ever had a stomach ulcer or??gastrointestinal bleeding o Take blood- thinning medicines ??? Keep your appointments for any further testing that may have been scheduled for you. ?? Follow-up care Follow up with your healthcare provider, or as advised. If X-rays or a CT scan were done, you will be told if there is a change in the reading, especially if it affects treatment. ?? Call 911 Call 911 if any of these happen: ??? Trouble breathing ??? Confusion ??? Trouble waking up ??? Fainting or loss of consciousness ??? Fast or very slow heart rate ??? Seizure ??? Speech or vision problems ??? Arm or leg weakness ??? Trouble walking or talking, loss of balance, numbness or weakness on one side of your body, or facial droop ?? When to get medical advice Call your healthcare provider right away if any of these happen: ??? Another unexplained fall ??? Dizziness ??? Severe headache ??? Nausea and vomiting ??? Blood in vomit, stools (black or red color) ?? Last Reviewed Date: 2022 ?? [id number] [employer]. All rights reserved. This information is not intended as a substitute for professional medical care. Always follow your healthcare professional's instructions. ?? Patient Care team information Care Team Personnel Name: Edis CALDWELL, Makenzie Aldrich Position: [facility] Physician - Primary Care Member Role: PCP Address: Address: [address] [place] [address] [address] [place] [address]- Name: Khadijah Rothman Position: [facility] RN Member Role: Primary Care Nurse Name: Liz Christianson RN Position: [facility] RN Member Role: Primary Care Nurse Name: Keeley Sims RN Position: [facility] RN Member Role: Primary Care Nurse Name: Delicia Matos RN Position: [facility] RN Member Role: Primary Care Nurse Name: Christian Carson RN Position: [facility] RN Member Role: Primary Care Nurse Name: Jose Camacho RN Position: [facility] RN Member Role: Primary Care Nurse Name: Hai DIAZ Attending Position: [facility] ED Medicine MD Name: Juanis Anderson Position: [facility] ED RN W/OE and Tasks Member Role: Patient Care Provider Name: Joyce Collazo Position: [facility] Name: Manju Pires Position: [facility] Member Role: Patient Care Provider Care Team Related Persons Name: YESY WILD Address: [address] [address]
--- OUTSIDE RECORDS SUMMARY | 2022-12-29 11:16 | XMS_ITS | Continuity of Care Document ---
Author Name Unknown Organization [facility] ter Address [address] [place] [id number]- Care Team Providers Care Biomedical Service Engineer Name Role Phone Edis CALDWELL, September A Primary Care Physicia n Encounter [facility] Date(s): 12/07/22 - 12/07/[address] [address]- Encounter Diagnosis Fall(Final) - 12/07/22 Discharge Disposition: A-D/C Home Attending Physician: Leann Ross DO Admitting Physician: Leann Ross DO Referring Physician: Not on Staff, Referring [...] Exam Date Time Procedure Performing Provider Status 12/07/22 6:38 AM Chest 2 Views Frontal and Lat Ria Gutiérrez; Auth (Verified) Notes: (Chest 2 Views Frontal and Lat) Reason For Exam: Traumatic Chest Pain;Other: RESULT: Chest 2 Views Frontal and Lat Chest 2 Views Frontal and Lat Hx of Present Illness: fall; Reason: Other:; Traumatic Chest Pain; Clinical Question(s): Other:; Pneumothorax, Fracture COMPARISON: 09/27/2018. FINDINGS: LINES AND TUBES: None. LUNGS AND PLEURA: Clear lungs. Normal pulmonary vascularity. No pleural effusion. No pneumothorax. HEART, MEDIASTINUM AND SAIGE: Heart is normal in size. Normal mediastinal and hilar contour. BONES AND SOFT TISSUES: No acute abnormality. IMPRESSION: No acute abnormality. WSN: [id number] Ordering Physician: Leann Ross Dictated By: Franchesca Alexander MD Dictated Date/Time: 12/07/22 8:06 am Reviewed By: Franchesca Alexander MD Signed By: Franchesca Alexander MD Signed Date/Time: 12/07/22 8:06 am Transcribed By: NICHOLAS Transcribed Date/Time: 12/07/22 8:05 am * Exam Date Time Procedure Performing Provider Status 12/07/22 5:[address] Cervical Spine W/O Contrast Dieudonne Kan; Auth (Verified) Notes: (CT Cervical Spine W/O Contrast) Reason For Exam: Neck trauma, dangerous injury mechanism;Other: RESULT: CT Cervical Spine W/O Contrast CT Head/Brain W/O Contrast, CT Cervical Spine W/O Contrast INDICATION: Hx of Present Illness: fall; Reason: Headache(s); Clinical Question(s): Hematoma TECHNIQUE: Noncontrast head CT using axial technique was reconstructed in axial and coronal planes.Noncontrast spiral CT through the cervical spine was formatted in 3 planes. Automatic tube modulation was used for the cervical spine and iterative dose reconstruction was used for both the head and cervical spine to optimize scan parameters and image quality. COMPARISON: Multiple priors most recently 11/22/2022 FINDINGS: Senior Mobile Solutions Architect View Findings, Lines and Tubes: None. BRAIN AND EXTRA-AXIAL SPACES: Unchanged left frontal encephalomalacia. No parenchymal hemorrhage, midline shift, or mass effect. Major-white matter differentiation is wellpreserved. No acute infarct. Negative insular ribbon sign. Atherosclerotic vascular calcification of the carotid arteries but negative hyperdense vessel sign. Moderate prominence of the ventricles and sulci consistent with parenchymal volume loss. Moderate to severe low-density white matter changes. No subarachnoid hemorrhage. No subdural or epidural collection. CALVARIUM, SKULL BASE, AND SOFT TISSUES: No fractures or suspicious bony lesions. Lucencies in both parietal bones, unchanged from 2019 and likely benign. The paranasal sinuses and mastoid air cells are clear. Visualized orbits and globes are intact. Status post right lens extraction. The extracranial soft tissues are unremarkable. CERVICAL SPINE: No fracture. No acute osseous abnormalities. Straightening of the normal cervical lordosis. No locked or perched facet. Moderate multilevel degenerative disc space narrowing and end plate irregularity. OTHER BONES: No acute abnormality. CERVICAL SOFT TISSUES AND LUNG APICES: Normal soft tissues. Biapical pleural-parenchymal scarring. IMPRESSION: No acute abnormality of the head or cervical spine. I have personally reviewed the images and I agree with this report. WSN: [id number] Ordering Physician: Leann Ross Dictated By: Madison Benedict DO Dictated Date/Time: 12/07/22 7:40 am Reviewed By: Rashad Shetty MD Signed By: Rashad Sehtty MD Signed Date/Time: 12/07/22 7:45 am Transcribed By: NICHOLAS Transcribed Date/Time: 12/07/22 5:54 am * Exam Date Time Procedure Performing Provider Status 12/07/22 5:[address] Head/Brain W/O Contrast Stupak , Ol eg; Auth (Verified) Notes: (CT Head/Brain W/O Contrast) Reason For Exam: Headache(s) RESULT: CT Head/Brain W/O Contrast CT Head/Brain W/O Contrast, CT Cervical Spine W/O Contrast INDICATION: Hx of Present Illness: fall; Reason: Headache(s); Clinical Question(s): Hematoma TECHNIQUE: Noncontrast head CT using axial technique was reconstructed in axial and coronal planes.Noncontrast spiral CT through the cervical spine was formatted in 3 planes. Automatic tube modulation was used for the cervical spine and iterative dose reconstruction was used for both the head and cervical spine to optimize scan parameters and image quality. COMPARISON: Multiple priors most recently 11/22/2022 FINDINGS: Senior Mobile Solutions Architect View Findings, Lines and Tubes: None. BRAIN AND EXTRA-AXIAL SPACES: Unchanged left frontal encephalomalacia. No parenchymal hemorrhage, midline shift, or mass effect. Major-white matter differentiation is wellpreserved. No acute infarct. Negative insular ribbon sign. Atherosclerotic vascular calcification of the carotid arteries but negative hyperdense vessel sign. Moderate prominence of the ventricles and sulci consistent with parenchymal volume loss. Moderate to severe low-density white matter changes. No subarachnoid hemorrhage. No subdural or epidural collection. CALVARIUM, SKULL BASE, AND SOFT TISSUES: No fractures or suspicious bony lesions. Lucencies in both parietal bones, unchanged from 2019 and likely benign. The paranasal sinuses and mastoid air cells are clear. Visualized orbits and globes are intact. Status post right lens extraction. The extracranial soft tissues are unremarkable. CERVICAL SPINE: No fracture. No acute osseous abnormalities. Straightening of the normal cervical lordosis. No locked or perched facet. Moderate multilevel degenerative disc space narrowing and end plate irregularity. OTHER BONES: No acute abnormality. CERVICAL SOFT TISSUES AND LUNG APICES: Normal soft tissues. Biapical pleural-parenchymal scarring. IMPRESSION: No acute abnormality of the head or cervical spine. I have personally reviewed the images and I agree with this report. WSN: [id number] Ordering Physician: Leann Ross Dictated By: Madison Benedict DO Dictated Date/Time: 12/07/22 7:40 am Reviewed By: Rashad Shetty MD Signed By: Rashad Shetty MD Signed Date/Time: 12/07/22 7:45 am Transcribed By: NICHOLAS Transcribed Date/Time: 12/07/22 5:54 am Vital Signs Most recent to oldest [Reference Range]: 1 2 3 Oxygen Saturation [94-100 %] 96 % (12/07/22 10:45 AM) 94 % (12/07/22 9:17 AM) 93 % *L* (12/07/22 7:04 AM) Pulse Rate [55-90 bpm] 70 bpm (12/07/22 10:45 AM) 73 bpm (12/07/22 9:17 AM) 70 bpm (12/07/22 7:04 AM) Blood Pressure [90-138/55-84 mm Hg] 122/70mm Hg (12/07/22 10:45 AM) 118/68mm Hg (12/07/22 9:17 AM) 120/62mm Hg (12/07/22 7:04 AM) Respiratory Rate [16-30 br/min] 20 br/min (12/07/22 10:45 AM) 18 br/min (12/07/22 9:17 AM) 16 br/min (12/07/22 7:04 AM) Temperature [96.8-100.4 DegF] 98.2 DegF (12/07/22 10:45 AM) 97.8 DegF (12/07/22 9:17 AM) 97.9 DegF (12/07/22 7:04 AM) Mode of Delivery (Oxygen) Room air (12/07/22 10:45 AM) Room air (12/07/22 9:17 AM) Room air (12/07/22 7:04 AM) Blood pressure sites Arm, right (12/07/22 10:45 AM) Arm, right (12/07/22 9:17 AM) Arm, right (12/07/22 7:04 AM) Temperature Route Oral (12/07/22 10:45 AM) Oral (12/07/22 9:17 AM) Oral (12/07/22 7:04 AM) EKG study * Event Display: ECG 12-Lead Authored Date: Please click on pdf link to open report * Event Display: ECG 12-Lead Authored Date: Ventricular Rate: 57 BPM Atrial Rate: 57 BPM P-R Interval: 206 ms QRS Duration: 88 ms Q-T Interval: 404 ms QTC Calculation(Bazett): 393 ms P [place]: 112 degrees R [place]: 45 degrees T [place]: 40 degrees Sinus bradycardia Otherwise normal ECG When compared with ECG of 22-NOV-2022 10:37, No significant change was found Confirmed by DEBORA HEAD ([id number]) on 12/07/2022 11:35:10 AM [place]: DEBORA HEAD Patient Care team information Care Team Personnel Name: Edis CALDWELL, September Position: [facility] Physician - Primary Care Member Role: PCP Address: Address: [address] [place] [address] [address] [place] [address]- [place] Name: Millicent Gallagher Position: [facility] Member Role: Phosphorus Processing Supervisor Name: Karey Lancaster RN Position: [facility] ED RN W/OE and Tasks Member Role: Patient Care Provider Name: Star CALDWELL, Damaris Olmstead Position: [facility] ED Medicine MD Member Role: ED Attending Physician Address: Address: [address] [place] [id number]- Name: Mary Flanagan MD Position: [facility] Resident Member Role: ED Resident Address: Address: [address] [place] [id number]- Care Team Related Persons Name: CAROLANN WILD Address: [address] [address]
== END 2022-12-29 13:50 | disposition home or self-care (01) ==
PROVIDERS: PCP Internal Medicine; Visit Provider Nurse Practitioner Family
DX: F03.918 Unspecified dementia, unspecified severity, with other behavioral disturbance (principal); Z86.79 Personal history of other diseases of the circulatory system; Z87.898 Personal history of other specified conditions
CPT/HCPCS: 99214

== ENCOUNTER → 2022-12-29 11:14 | Outpatient (BNVA) | payer MEDICARE, SELFPAY | PROVIDERS: PCP Internal Medicine; Visit Provider Nurse Practitioner Family ==